=== PATIENT | female | born 1950 | race Caucasian/White ===

== ENCOUNTER → 2016-12-29 | Day surgery (SDC) | payer OTHER ==
[2016-12-12 08:19] VITALS: Ht 152.4 cm; Wt 115.9 kg
[~2016-12-29] VITALS: Ht 152.4 cm; Wt 115.9 kg
[~2016-12-29] MED LIST: ALBU18002 INH; AMLO-110 PO; CALC600T9 PO; CHOL1000 PO; EpHEDrine SULFATE INJ 50 MG/ML AMP ONE; FLVHFA110 INH; FURO40TA3 PO; HYDR200T5 PO; LIDOCAINE HCL 2% 2 ML VIAL (20MG/ML) ONE; MULT-506 PO; PROPOFOL IV EMULSION 10 MG/ML 20 ML VIAL IV ONE
--- NOTE | 2016-12-29 13:23 | Endo History and Physical ---
History & Physical Date of Service: Dec 29, 2016. Chief Complaint: HX OF POLYPS Referring Physician: DR. JAIN History of Present Illness For colonoscopy Past Surgical History Hx Cardiac Surgery: No Hx Internal Defibrillator: No Hx Pacemaker: No Hx Abdominal Surgery: Yes (AVELINO BSO) Hx of Implantable Prosthesis: No Hx Post-Op Nausea and Vomiting: No Hx Cancer Surgery: Yes (BCC REMOVAL FROM FACE) Hx Thoracic Surgery: No Hx Orthopedic: Yes (RT KNEE SURGERY) Hx Urinary Tract Surgery: No Family History Colon CA Social History Smoking Status: Never Smoker Hx Substance Use: No Hx Alcohol Use: No Allergies Coded Allergies: No Known Allergies (Verified , 12/29/16) Current Medications Reported Home Medications Medications Dose Route/Sig Max Daily Dose Days Date Category Calcium + D (Calcium Carbonate-Vitamin D) 1 Tab Tab 1 Tab PO QAM 12/12/16 Reported Plaquenil (Hydroxychloroquine Sulfate) 200 Mg Tab 200 Mg PO QPM PRN 12/12/16 Reported Vitamin D3 (Cholecalciferol) 1,000 Unit Tab 1 Tab PO QAM 12/12/16 Reported Multivitamin (Multivitamins) Tab 1 Tab PO QAM 12/12/16 Reported Lasix (Furosemide) 40 Mg Tab 40 Mg PO QAM 12/12/16 Reported Norvasc (Amlodipine Besylate) 5 Mg Tab 5 Mg PO QAM 12/12/16 Reported Proair Respiclick (Albuterol Sulfate) 108 Mcg/Act Aer 1 Puff INH Q4H PRN 12/12/16 Reported Flovent Hfa (Fluticasone Propionate) 120 Puffs/25722 Mcg Aero 2 Puffs INH BID PRN 12/12/16 Reported Vital Signs Weight (Kilograms): 115.91 Height (Feet): 5 Height (Inches): 0 Date Time Temp Pulse Resp B/P Pulse Ox O2 Delivery O2 Flow Rate FiO2 12/29/16 12:55 36.8 80 18 158/87 97 Room Air Physical Exam General Appearance: + obese Respiratory/Chest: Respiratory effort: no dyspnea Cardiovascular: Heart Auscultation: RRR Abdomen: Inspection & Palpation: soft Assessment and Plan Hx of polyps for colonoscopy
--- NOTE | 2016-12-29 13:47 | Discharge Instructions ---
Endoscopy Patient Instructions Date / Procedure(s) Performed Dec 29, 2016. Colonoscopy Allergy Information Coded Allergies: No Known Allergies (Verified , 12/29/16) Discharge Date / Findings Dec 29, 2016. Hemorrhoids Medication Instructions Restart Stopped Medication(s): resume meds Reported Home Medications Medications Dose Route/Sig Max Daily Dose Days Date Category Calcium + D (Calcium Carbonate-Vitamin D) 1 Tab Tab 1 Tab PO QAM 12/12/16 Reported Plaquenil (Hydroxychloroquine Sulfate) 200 Mg Tab 200 Mg PO QPM PRN 12/12/16 Reported Vitamin D3 (Cholecalciferol) 1,000 Unit Tab 1 Tab PO QAM 12/12/16 Reported Multivitamin (Multivitamins) Tab 1 Tab PO QAM 12/12/16 Reported Lasix (Furosemide) 40 Mg Tab 40 Mg PO QAM 12/12/16 Reported Norvasc (Amlodipine Besylate) 5 Mg Tab 5 Mg PO QAM 12/12/16 Reported Proair Respiclick (Albuterol Sulfate) 108 Mcg/Act Aer 1 Puff INH Q4H PRN 12/12/16 Reported Flovent Hfa (Fluticasone Propionate) 120 Puffs/85826 Mcg Aero 2 Puffs INH BID PRN 12/12/16 Reported Provider Instructions Activity Restrictions - No exercising or heavy lifting for 24 hours. - Do not drink alcohol the day of the procedure. - Do not drive a car or operate machinery until the day after the procedure. - Do not make any important decisions or sign important papers in 24 hours after the procedure. Following Day: - Return to full activity which may include returning to work/school. Diet Start your diet with liquids and light foods (jello, soup, juice, toast). Then eat your usual diet if not nauseated. Treatment For Common After Affects For mild abdominal pain, bloating, or excessive gas: - Rest - Eat lightly - Lie on right side Follow-Up Information Follow-up with DR. JAIN as scheduled Anesthesia Information What You Should Know You have had a procedure that required some medicine to reduce anxiety and discomfort. This treatment is called moderate sedation. After receiving the treatment, you may be sleepy, but you will be able to breathe on your own. The effects of the treatment may last for several hours. Follow these instructions along with Activity/Diet recommendations noted above: * Do NOT do anything where dizziness or clumsiness would be dangerous. * Rest quietly at home today, then you can be up and about tomorrow. * Have a responsible person stay with you the rest of today. * You may have had an I.V. today. If so, you may take the dressing off later today. Recommendations Call your doctor if: * Trouble breathing * Continuous vomiting for more than 24 hours * Temperature above 101 degrees * Severe abdominal pain or bloating * Pain not relieved by pain medicine ordered * There is increased drainage or redness from any incision * A large amount of rectal bleeding greater than 2-3 tablespoons. (If you had a polyp/s removed or have hemorrhoids, a small amount of blood - from the rectum is to be expected.) * You have any unanswered questions or concerns. IN THE EVENT OF A SERIOUS EMERGENCY, GO TO THE NEAREST EMERGENCY ROOM Your discharge instructions were prepared by provider Lucien Wright. Patient Instructions Signature Page Ny Vallecillo Patient (or Guardian) Signature/Date: I have read and understand the instructions given to me by my caregivers. Caregiver/RN/Doctor Signature/Date: The above-named patient and/or guardian has received patient instructions on this date. + Original Patient Signature Page (only) stays with chart. Please make copy for patient.
--- NOTE | 2016-12-29 13:50 | GI REPORT ---
Procedure Date: 12/29/2016 1:14 PM Procedure: Colonoscopy Indications: Personal history of colonic polyps Medicines: Propofol total dose 150 mg IV, Lidocaine 40 mg IV Complications: No immediate complications. Estimated Blood Loss: Estimated blood loss: none. Procedure: Pre-Anesthesia Assessment: - Prior to the procedure, a History and Physical was performed, and patient medications, allergies and sensitivities were reviewed. The patient's tolerance of previous anesthesia was reviewed. - The risks and benefits of the procedure and the sedation options and risks were discussed with the patient. All questions were answered and informed consent was obtained. After I obtained informed consent, the scope was passed under direct vision. Throughout the procedure, the patient's blood pressure, pulse, and oxygen saturations were monitored continuously. The scope was introduced through the anus and advanced to the terminal ileum. The colonoscopy was performed without difficulty. The patient tolerated the procedure well. The quality of the bowel preparation was excellent. Findings: Non-bleeding internal hemorrhoids were found during endoscopy. The hemorrhoids were mild. The terminal ileum appeared normal. Impression: - Non-bleeding internal hemorrhoids. - The examined portion of the ileum was normal. - No specimens collected. Recommendation: - Discharge patient to home (ambulatory). - Continue present medications. - Repeat colonoscopy in 5 years for surveillance. - Return to primary care physician PRN. Lucien Wright M.D. Lucien Wright MD 12/29/2016 1:49:28 PM This report has been signed electronically. Note Initiated On: 12/29/2016 1:14 PM I attest to the content of the Intraoperative Record and orders documented therein, exceptions below
[2016-12-29 14:19] VITALS: BP 127/67; PULSE 6; O2SAT 96
--- NOTE | 2016-12-29 14:37 | Anesthesiology Progress Note ---
Anesthesia Post Op Note Date & Time Dec 29, 2016 at 14:36 Vital Signs Pain Intensity: 0 Vital Signs Past 12 Hours Date Time Temp Pulse Resp B/P Pulse Ox O2 Delivery O2 Flow Rate FiO2 12/29/16 14:19 6 18 127/67 96 Room Air 12/29/16 14:03 74 18 121/67 95 Room Air 12/29/16 13:56 109/66 12/29/16 13:48 80 18 90/58 97 Room Air 12/29/16 12:55 36.8 80 18 158/87 97 Room Air Notes Mental Status: alert / awake / arousable, participated in evaluation Pt Amnestic to Procedure: Yes Nausea / Vomiting: adequately controlled Pain: adequately controlled Airway Patency, RR, SpO2: stable & adequate BP & HR: stable & adequate Hydration State: stable & adequate Anesthetic Complications: no major complications apparent
== END | disposition home or self-care (01) ==
LOC: C.GI 12:36
PROVIDERS: ATTEND Internal Medicine Gastroenterology
DX: Z86.010 Personal history of colon polyps (principal); K64.8 Other hemorrhoids; Z80.0 Family history of malignant neoplasm of digestive organs; Z90.710 Acquired absence of both cervix and uterus; Z90.79 Acquired absence of other genital organ(s); Z90.722 Acquired absence of ovaries, bilateral

== ENCOUNTER → 2017-01-06 | Outpatient (CLI) | payer OTHER ==
[~2017-01-06] MED LIST changes: -EpHEDrine SULFATE INJ 50 MG/ML AMP ONE; -LIDOCAINE HCL 2% 2 ML VIAL (20MG/ML) ONE; -PROPOFOL IV EMULSION 10 MG/ML 20 ML VIAL IV ONE
[2017-01-06 13:16] LABS: ALT/SGPT 24 U/L (12-78); AST/SGOT 8 U/L (15-37); BLOOD UREA NITROGEN 13 mg/dl (7-18); CALCIUM 8.8 mg/dl (8.5-10.1); CARBON DIOXIDE 30 mmol/L (21-32); CHLORIDE 109 mmol/L (98-107); CHOLESTEROL 177 mg/dl (0-200); GLUCOSE 85 mg/dl (70-99); MAGNESIUM 2.3 mg/dl (1.8-2.4); POTASSIUM 3.9 mmol/L (3.5-5.1); SODIUM 144 mmol/L (136-145)
[2017-01-06 13:20] LABS: CHOLESTEROL/HDL RATIO 3.6; HDL CHOLESTEROL 49 mg/dl; LDL CHOLESTEROL CALCULATED 100 mg/dl; TRIGLYCERIDES 142 mg/dl (0-150); VERY LOW DENSITY LIPOPROT CALC 28 mg/dl
== END | disposition home or self-care (01) ==
LOC: C.LABMFLN 10:43
PROVIDERS: ATTEND Family Medicine
DX: E78.5 Hyperlipidemia, unspecified (principal); E55.9 Vitamin D deficiency, unspecified; I10 Essential (primary) hypertension

== ENCOUNTER → 2017-07-20 | Outpatient (CLI) | payer OTHER ==
[2017-07-20 13:23] LABS: ALT/SGPT 28 U/L (12-78); AST/SGOT 15 U/L (15-37); BLOOD UREA NITROGEN 14 mg/dl (7-18); CALCIUM 8.9 mg/dl (8.5-10.1); CARBON DIOXIDE 28 mmol/L (21-32); CHLORIDE 104 mmol/L (98-107); CREATININE 0.59 mg/dl (0.60-1.20); GLUCOSE 89 mg/dl (70-99); POTASSIUM 3.9 mmol/L (3.5-5.1); SODIUM 141 mmol/L (136-145)
[2017-07-20 13:26] LABS: CHOLESTEROL 168 mg/dl (0-200); CHOLESTEROL/HDL RATIO 3.1; HDL CHOLESTEROL 54 mg/dl; LDL CHOLESTEROL CALCULATED 82 mg/dl; TRIGLYCERIDES 159 mg/dl (0-150); VERY LOW DENSITY LIPOPROT CALC 32 mg/dl
== END | disposition home or self-care (01) ==
LOC: C.LABMFLN 09:26
PROVIDERS: ATTEND Family Medicine
DX: E78.5 Hyperlipidemia, unspecified (principal); E55.9 Vitamin D deficiency, unspecified; I10 Essential (primary) hypertension

== ENCOUNTER → 2017-12-23 | Outpatient (CLI) | payer OTHER | END | disposition home or self-care (01) | LOC: C.LABMFLN 08:07 | PROVIDERS: ATTEND Family Medicine | DX: E87.6 Hypokalemia (principal) ==

== ENCOUNTER → 2018-01-06 | Day surgery (SDC) | payer OTHER ==
[2018-01-01 08:55] VITALS: BMI 51.0
[~2018-01-06] VITALS: Ht 149.9 cm; Wt 118.2 kg
[~2018-01-06] MED LIST changes: +FLUT1INH3 INH; +FLUT50SP45; -HYDR200T5 PO; +LIDOCAINE HCL 2% 2 ML VIAL (20MG/ML) ONE; +MONT1TAB5 PO; +OMEP-334 PO; +POTA1CAP2 PO; +PROPOFOL IV EMULSION 10 MG/ML 20 ML VIAL ONE; +TRMCR515 TOP
[2018-01-06 12:14] VITALS: Ht 149.9 cm; Wt 118.2 kg
--- NOTE | 2018-01-06 13:02 | Endo History and Physical ---
History & Physical Date of Service: January 06, 2018. Chief Complaint: EPIGASTRIC PAIN Referring Physician: DR. JAIN History of Present Illness For EGD Past Surgical History Hx Cardiac Surgery: No Hx Internal Defibrillator: No Hx Pacemaker: No Hx Abdominal Surgery: Yes ([facility]INO BSO) Hx of Implantable Prosthesis: No Hx Post-Op Nausea and Vomiting: No Hx Cancer Surgery: Yes (BCC REMOVAL FROM FACE) Hx Thoracic Surgery: No Hx Orthopedic: Yes (RT KNEE SURGERY, [facility]) Hx Urinary Tract Surgery: No Family History Colon CA Social History Smoking Status: Never Smoker Hx Substance Use: No Hx Alcohol Use: No Allergies Coded Allergies: No Known Allergies (Verified , 01/06/18) Current Medications Reported Home Medications Medications Dose Route/Sig Max Daily Dose Days Date Category Triamcinolone Acetonide (Triamcinolone Acet) 45 Appln/15 Gm Cr 1 Appln TOP BID 30 01/01/18 Reported Potassium Chloride Er (Potassium Chloride) 10 Meq Cap 1 Cap PO DAILY 90 01/01/[address] (Omeprazole) 40 Mg Cap 1 Tab PO DAILY 01/01/18 Reported Montelukast Sodium 10 Mg Tab 1 Tab PO DAILY 30 01/01/18 Reported Allergy Nasal [place] 24 Ho (Fluticasone Propionate (Nasal)) 50 Mcg/Act Spr 2 Sprays NA DAILY PRN 01/01/18 Reported Arnuity Ellipta (Fluticasone Furoate (Inhalatio) 100 Mcg/Act Inh 1 Puff INH DAILY 01/01/18 Reported Calcium + D (Calcium Carbonate-Vitamin D) 1 Tab Tab 1 Tab PO QAM 12/12/16 Reported Vitamin D3 (Cholecalciferol) 1,000 Unit Tab 1 Tab PO QAM 12/12/16 Reported Multivitamin (Multivitamins) Tab 1 Tab PO QAM 12/12/16 Reported Lasix (Furosemide) 40 Mg Tab 40 Mg PO QAM 12/12/16 Reported Norvasc (Amlodipine Besylate) 5 Mg Tab 5 Mg PO QAM 12/12/16 Reported Proair Respiclick (Albuterol Sulfate) 108 Mcg/Act Aer 1 Puff INH Q4H PRN 12/12/16 Reported Vital Signs Weight (Kilograms): 118.18 Height (Feet): 4 Height (Inches): 11 Date Time Temp Pulse Resp B/P (MAP) Pulse Ox O2 Delivery O2 Flow Rate FiO2 01/06/18 12:36 36.8 63 20 146/84 (104) 97 Room Air Physical Exam General Appearance: + obese Respiratory/Chest: Respiratory effort: no dyspnea Cardiovascular: Heart Auscultation: RRR Abdomen: Inspection & Palpation: soft Assessment and Plan Epig pain for EGD
--- NOTE | 2018-01-06 13:24 | Discharge Instructions ---
Endoscopy Patient Instructions Date / Procedure(s) Performed January 06, 2018. EGD Allergy Information Coded Allergies: No Known Allergies (Verified , 01/06/18) Discharge Date / Findings January 06, 2018. Gastric polyps Medication Instructions Restart Stopped Medication(s): resume meds Reported Home Medications Medications Dose Route/Sig Max Daily Dose Days Date Category Triamcinolone Acetonide (Triamcinolone Acet) 45 Appln/15 Gm Cr 1 Appln TOP BID 30 01/01/18 Reported Potassium Chloride Er (Potassium Chloride) 10 Meq Cap 1 Cap PO DAILY 90 01/01/[address] (Omeprazole) 40 Mg Cap 1 Tab PO DAILY 01/01/18 Reported Montelukast Sodium 10 Mg Tab 1 Tab PO DAILY 30 01/01/18 Reported Allergy Nasal [place] 24 Ho (Fluticasone Propionate (Nasal)) 50 Mcg/Act Spr 2 Sprays NA DAILY PRN 01/01/18 Reported Arnuity Ellipta (Fluticasone Furoate (Inhalatio) 100 Mcg/Act Inh 1 Puff INH DAILY 01/01/18 Reported Calcium + D (Calcium Carbonate-Vitamin D) 1 Tab Tab 1 Tab PO QAM 12/12/16 Reported Vitamin D3 (Cholecalciferol) 1,000 Unit Tab 1 Tab PO QAM 12/12/16 Reported Multivitamin (Multivitamins) Tab 1 Tab PO QAM 12/12/16 Reported Lasix (Furosemide) 40 Mg Tab 40 Mg PO QAM 12/12/16 Reported Norvasc (Amlodipine Besylate) 5 Mg Tab 5 Mg PO QAM 12/12/16 Reported Proair Respiclick (Albuterol Sulfate) 108 Mcg/Act Aer 1 Puff INH Q4H PRN 12/12/16 Reported Provider Instructions Activity Restrictions - No exercising or heavy lifting for 24 hours. - Do not drink alcohol the day of the procedure. - Do not drive a car or operate machinery until the day after the procedure. - Do not make any important decisions or sign important papers in 24 hours after the procedure. Following Day: - Return to full activity which may include returning to work/school. Diet Start your diet with liquids and light foods (jello, soup, juice, toast). Then eat your usual diet if not nauseated. Treatment For Common After Affects For mild abdominal pain, bloating, or excessive gas: - Rest - Eat lightly - Lie on right side Follow-Up Information Follow-up with DR. JAIN as scheduled Anesthesia Information What You Should Know You have had a procedure that required some medicine to reduce anxiety and discomfort. This treatment is called moderate sedation. After receiving the treatment, you may be sleepy, but you will be able to breathe on your own. The effects of the treatment may last for several hours. Follow these instructions along with Activity/Diet recommendations noted above: * Do NOT do anything where dizziness or clumsiness would be dangerous. * Rest quietly at home today, then you can be up and about tomorrow. * Have a responsible person stay with you the rest of today. * You may have had an I.V. today. If so, you may take the dressing off later today. Recommendations Call your doctor if: * Trouble breathing * Continuous vomiting for more than 24 hours * Temperature above 101 degrees * Severe abdominal pain or bloating * Pain not relieved by pain medicine ordered * There is increased drainage or redness from any incision * A large amount of rectal bleeding greater than 2-3 tablespoons. (If you had a polyp/s removed or have hemorrhoids, a small amount of blood - from the rectum is to be expected.) * You have any unanswered questions or concerns. IN THE EVENT OF A SERIOUS EMERGENCY, GO TO THE NEAREST EMERGENCY ROOM Your discharge instructions were prepared by provider Lucien Wright. Patient Instructions Signature Page Ny Vallecillo Patient (or Guardian) Signature/Date: I have read and understand the instructions given to me by my caregivers. Caregiver/RN/Doctor Signature/Date: The above-named patient and/or guardian has received patient instructions on this date. + Original Patient Signature Page (only) stays with chart. Please make copy for patient.
--- NOTE | 2018-01-06 13:29 | GI REPORT ---
Patient Name: Ny Vallecillo Procedure Date: 01/06/2018 1:04 PM Date of : 1950 Admit Type: Outpatient Age: 67 Gender: Female Attending MD: Lucien Wright MD Procedure: Upper GI endoscopy Providers: Lucien Wright MD Referring MD: Barry Joel Indications: Epigastric abdominal pain Medicines: Propofol total dose 90 mg IV, Lidocaine 80 mg IV Complications: No immediate complications. Estimated Blood Loss: Estimated blood loss: none. Procedure: Pre-Anesthesia Assessment: - Prior to the procedure, a History and Physical was performed, and patient medications, allergies and sensitivities were reviewed. The patient's tolerance of previous anesthesia was reviewed. - The risks and benefits of the procedure and the sedation options and risks were discussed with the patient. All questions were answered and informed consent was obtained. After obtaining informed consent, the endoscope was passed under direct vision. Throughout the procedure, the patient's blood pressure, pulse, and oxygen saturations were monitored continuously. The On-site loaner was introduced through the mouth, and advanced to the second part of duodenum. The upper GI endoscopy was accomplished without difficulty. The patient tolerated the procedure well. Findings: The Z-line was regular and was found 37 cm from the incisors. The examined esophagus was normal. A few 4 mm semi-sessile polyps with no bleeding and no stigmata of recent bleeding were found in the gastric body. The examined duodenum was normal. Impression: - Z-line regular, 37 cm from the incisors. - Normal esophagus. - A few gastric polyps. - Normal examined duodenum. - No specimens collected. Recommendation: - Discharge patient to home (ambulatory). - Continue present medications. - Return to primary care physician PRN. Lucien Wright M.D. Lucien Wright MD 01/06/2018 1:28:40 PM This report has been signed electronically. Note Initiated On: 01/06/2018 1:04 PM Number of Addenda: 0 I attest to the content of the Intraoperative Record and orders documented therein, exceptions below {[id number]}
--- NOTE | 2018-01-06 13:42 | Anesthesiology Progress Note ---
Anesthesia Post Op Note Date & Time January 06, 2018 at 13:42 Vital Signs Pain Intensity: 0 Vital Signs Past 12 Hours Date Time Temp Pulse Resp B/P (MAP) Pulse Ox O2 Delivery O2 Flow Rate FiO2 01/06/18 13:28 66 16 124/77 (93) 96 Room Air 01/06/18 12:36 36.8 63 20 146/84 (104) 97 Room Air Notes Mental Status: alert / awake / arousable, participated in evaluation Pt Amnestic to Procedure: Yes Nausea / Vomiting: adequately controlled Pain: adequately controlled Airway Patency, RR, SpO2: stable & adequate BP & HR: stable & adequate Hydration State: stable & adequate Anesthetic Complications: no major complications apparent
[2018-01-06 13:58] VITALS: BP 130/81; PULSE 65; O2SAT 97
== END | disposition home or self-care (01) ==
LOC: C.GI 11:48
PROVIDERS: ATTEND Internal Medicine Gastroenterology
DX: R10.13 Epigastric pain (principal); K31.7 Polyp of stomach and duodenum; G47.33 Obstructive sleep apnea (adult) (pediatric); J45.909 Unspecified asthma, uncomplicated; Z98.890 Other specified postprocedural states; Z80.0 Family history of malignant neoplasm of digestive organs

== ENCOUNTER → 2018-04-21 | Outpatient (CLI) | payer OTHER ==
[~2018-04-21] MED LIST changes: -AMLO-110 PO; +AMLO5TAB3 PO; -FLVHFA110 INH; -LIDOCAINE HCL 2% 2 ML VIAL (20MG/ML) ONE; -PROPOFOL IV EMULSION 10 MG/ML 20 ML VIAL ONE
[2018-04-21 13:05] LABS: ALBUMIN 3.3 gm/dl (3.4-5.0); ALKALINE PHOSPHATASE 66 U/L (45-117); ALT/SGPT 25 U/L (12-78); AST/SGOT 12 U/L (15-37); BLOOD UREA NITROGEN 15 mg/dl (7-18); CARBON DIOXIDE 30 mmol/L (21-32); CHOLESTEROL 178 mg/dl (0-200); CREATININE 0.65 mg/dl (0.60-1.20); GLUCOSE 89 mg/dl (70-99); LDL CHOLESTEROL CALCULATED 102 mg/dl; POTASSIUM 4.1 mmol/L (3.5-5.1); SODIUM 139 mmol/L (136-145); TOTAL PROTEIN 7.2 gm/dl (6.4-8.2)
== END | disposition home or self-care (01) ==
LOC: C.LABMFLN 07:52
PROVIDERS: ATTEND Family Medicine
DX: J30.9 Allergic rhinitis, unspecified (principal); E78.5 Hyperlipidemia, unspecified; I10 Essential (primary) hypertension

== ENCOUNTER 2019-07-05 08:11 | Inpatient (IN) ==
--- NOTE | 2019-06-06 14:18 | PAT Medication Instructions ---
Medication Instructions Date of Service June 06, 2019 Home Medications Medication Instructions Recorded albuterol sulfate HFA 90 2 puffs INHALATION Q4H PRN #18 gm 05/13/19 mcg/actuation aerosol inhaler metoprolol tartrate 25 mg tablet 25 mg PO BID #180 tab 05/17/19 albuterol sulfate HFA 90 mcg/actuation aerosol inhaler 2 puffs INHALATION Q4H PRN metoprolol tartrate 25 mg tablet 25 mg PO BID amlodipine 2.5 mg PO QAM calcium carbonate-vitamin D3 [Calcium 600 with Vitamin D3] 1 cap PO QAM cholecalciferol (vitamin D3) 4,000 units PO QAM fluticasone furoate 1 puffs INHALATION QAM fluticasone propionate 2 sprays INTRANASAL QAM PRN montelukast 10 mg PO QAM multivitamin 1 tab PO QAM triamcinolone acetonide 1 appln TOPICAL BID PRN STOP taking 24 hours before surgery triamcinolone acetonide 1 appln TOPICAL BID PRN DO NOT take the morning of surgery calcium carbonate-vitamin D3 [Calcium 600 with Vitamin D3] 1 cap PO QAM cholecalciferol (vitamin D3) 4,000 units PO QAM montelukast 10 mg PO QAM multivitamin 1 tab PO QAM Take morning of surgery With a small sip of water, OTHERWISE NOTHING TO EAT OR DRINK AFTER MIDNIGHT: albuterol sulfate HFA 90 mcg/actuation aerosol inhaler 2 puffs INHALATION Q4H PRN (use if needed; please bring with you to hospital day of surgery if possible) metoprolol tartrate 25 mg tablet 25 mg PO BID amlodipine 2.5 mg PO QAM fluticasone furoate 1 puffs INHALATION QAM fluticasone propionate 2 sprays INTRANASAL QAM PRN (if needed) Other Notes If you have any questions please call us at [phone] or [phone] or [phone] or [phone]
--- NOTE | 2019-06-07 08:24 | Anesthesiology Consultation ---
Date of Service June 07, 2019 Assessment & Plan (1) Encounter for pre-operative examination: Chart Review Chart Review: Pending: Refer to Additional Notes / Consult section (pending preop testing (labs, EKG)) and Patient seen in Pre Admission Testing Teaching & Discussion Pre-Anesthesia Teaching/Discussion Notes: Instructed NPO after midnight before surgery,except medications with 15 cc of water. Medication instructions provided according to the PAT guidelines. History Surgery Operation Date: 07/05/19 08:50 Proposed Procedures p Right Total Knee Replacement - Az Ayala MD Height/Weight Height: 5 ft Weight: 115.1 kg Allergies Allergy/AdvReac Type Severity Reaction Status Date / Time No Known Allergies Allergy Verified 06/03/19 10:25 Medications Home Medications Medication Instructions Recorded Confirmed Last Taken albuterol sulfate HFA 90 2 puffs INHALATION Q4H PRN #18 gm 05/13/19 06/03/19 Unknown mcg/actuation aerosol inhaler metoprolol tartrate 25 mg tablet 25 mg PO BID #180 tab 05/17/19 06/03/19 Unknown amlodipine 2.5 mg PO QAM 06/03/19 06/03/19 Unknown calcium carbonate-vitamin D3 1 cap PO QAM 06/03/19 06/03/19 Unknown [Calcium 600 with Vitamin D3] cholecalciferol (vitamin D3) 4,000 units PO QAM 06/03/19 06/03/19 Unknown fluticasone furoate 1 puffs INHALATION QAM 06/03/19 06/03/19 Unknown fluticasone propionate 2 sprays INTRANASAL QAM PRN 06/03/19 06/03/19 Unknown montelukast 10 mg PO QAM 06/03/19 06/03/19 Unknown multivitamin 1 tab PO QAM 06/03/19 06/03/19 Unknown triamcinolone acetonide 1 appln TOPICAL BID PRN 06/03/19 06/03/19 Unknown Past Medical History Medical History GERD without esophagitis hx Asthma stable Chronic edema B/L LE; L>R Heart palpitations hx- no recent issues; previously had bigeminy on prior EKG in setting of illness (N/V/dehydration)- not noted on preop EKG done 06/07/19 History of basal cell cancer s/p excision Hypertension Morbid obesity with BMI of 45.0-49.9, adult Osteoarthritis Sleep apnea CPAP Exercise / Class Metabolic Activity III < 4 Walking/Shop/Light housework (uses cane PRN) Past Family History Family History Grandmother (Maternal) Colorectal cancer Grandmother (Paternal) Diabetes Father COPD (chronic obstructive pulmonary disease) Mother Asthma Past Surgical History Surgical History History of arthroscopy of knee History of basal cell carcinoma (BCC) excision History of bunionectomy right History of carpal tunnel release of both wrists History of colonoscopy W/ POLYPECTOMY History of esophagogastroduodenoscopy (EGD) History of hammertoe correction right History of surgery on arm History of tonsillectomy Hx of abdominal hysterectomy Past Anesthesia History No Hx of Anesthesia Complications Mother: "slow to wake" History of PONV No Hx of PONV and No Hx of Motion Sickness Social History Smoking Status: Never smoker Do You Dip or Chew Tobacco: No Hx Alcohol Use: Yes alcohol intake frequency: holidays/special occasions only Hx Substance Use: No substance use type: does not use Review of Systems Hx of GERD with no recent issues. Patient denies chest pain, shortness of breath, cough, wheezing, palpitations. Physical Exam Vital Signs VITALS BP 100/69 P 59 TEMP 98.1 SP02 96%RA RESP 18 PHYSICAL Full neck and c-spine range of motion. Full TMJ range of motion. TMD 3.5 finger breaths Mallampati Score 3 (small oral opening) Dentition: intact, upper right side bridge Lungs: clear throughout to auscultation Cardiac: regular rate and rhythm, no murmurs noted Spine: normal Carotid arteries: negative bruit Extremities: no edema Short neck Testing Chest X-Ray Date: 01/06/19 Stress Test Date: 12/01/17 Type: exercise Negative exercise stress ECHO/EKG for ischemia at 90% MPHR. No induced chest pain. Poor functional status. LVEF 57%. Mild MR. Mild LAE.
[2019-06-07 11:20] LABS: Basophils # (auto) 0.02 K/uL (0-0.2); Basophils % (auto) 0.3 %; Eosinophils # (auto) 0.17 K/uL (0-0.5); Eosinophils % (auto) 2.6 %; Hemoglobin 13.9 g/dL (12.0-16.0); Immature Granulocytes # (auto) 0.02 K/uL (0.00-0.02); Immature Granulocytes % (auto) 0.3 %; Lymphocytes # (auto) 1.87 K/uL (1.2-3.4); Lymphocytes % (auto) 28.1 %; Mean Corpuscular Hemoglobin 29.6 pg (25-34); Mean Corpuscular Hgb Conc 32.3 g/dL (32-36); Mean Corpuscular Volume 91.5 fL (80-100); Mean Platelet Volume 12.2 fL (7.4-10.4); Monocytes # (auto) 0.48 K/uL (0.11-0.59); Monocytes % (auto) 7.2 %; Neutrophils % (auto) 61.5 %; Platelet Count 205 K/uL (130-400); RDW Coefficient of Variation 14.1 % (11.5-14.5); RDW Standard Deviation 47.4 fL (36.4-46.3); White Blood Count 6.66 K/uL (4.8-10.8)
[2019-06-07 11:34] LABS: Partial Thromboplastin Time 26.6 Seconds (21.0-31.0); Prothrombin Time 10.3 Seconds (9.0-12.0)
[2019-06-07 11:49] LABS: BUN Creatinine Ratio 20.5 (10-20); Calcium 9.4 mg/dl (8.5-10.1); Creatinine Clr Calc Pharmacy 97.6 ml/min; Est GFR (African American) 106.1; Est GFR (Non-African American) 91.5; Potassium 3.9 mmol/L (3.5-5.1)
--- NOTE | 2019-06-29 22:41 | History and Physical Report ---
DATE OF ADMISSION: 07/05/2019 CHIEF COMPLAINT: Bilateral knee pain and discomfort, right side greater than left. HISTORY OF PRESENT ILLNESS: The patient is a 68-year-old female who I have been following for some time for bilateral knee pain and DJD. I have been putting injections in her knees, which have become less successful over time. She described global pain in both knees. The right side is worse than the left. She has a very limited walking tolerance. She waddles when she walks. The more she walks, the more it hurts. She has global pain. Would like to have her right knee fixed. She does have a history of knee arthroscopy many years ago. She does use a cane to get around. PAST MEDICAL HISTORY: Significant for, 1. Hypertension. 2. Occasional heart palpitations. 3. Sleep apnea with CPAP machine. 4. Obesity with a BMI of 50. 5. Back pain. 6. Basal cell skin cancer. PAST SURGICAL HISTORY: 1. Knee arthroscopy. 2. Tonsillectomy. 3. Broken arm surgery. 4. Hysterectomy. 5. Hammertoe corrections and bunion surgery on the right side. 6. Carpal tunnel release bilaterally. ALLERGIES: None. CURRENT MEDICATIONS: 1. Amlodipine. 2. Potassium. 3. Metoprolol. 4. Asthma inhaler. 5. Multivitamin. 6. Calcium. 7. Vitamin D. SOCIAL HISTORY: A 68-year-old white female patient from [place]. Lives by herself. She does not smoke. FAMILY HISTORY: Noncontributory. REVIEW OF SYSTEMS: Negative for diabetes, neurologic problems, vascular problems, or bleeding disorders. No chest pain, no shortness of breath. No history of DVT or PE. PHYSICAL EXAMINATION: GENERAL: Physical examination reveals a pleasant elderly female. Looks to be in reasonably good health. HEENT: Benign. NECK: Supple, no lymphadenopathy. LUNGS: Clear to auscultation. HEART: Regular rate and rhythm. ABDOMEN: Soft, nontender, nondistended. EXTREMITIES: Grossly neurovascularly intact except as follows: Examination of both knees reveals the patient walks with a little bit of waddling gait. She has got varus alignment to both knees. Examination of the right knee reveals moderate soft tissue envelope. Range of motion is about 10 degrees short of full extension to 115 degrees of flexion. There is no instability. No pain with hip motion. Examination of the left knee reveals slight varus alignment. Range of motion is 10-120. She is tender over the medial joint line. No pain with hip motion. X-RAYS: X-rays of both knees reveal advanced bilateral knee DJD. She had complete loss of the medial joint space in both knees. She has osteophytes in all 3 compartments. She has subchondral sclerosis. ASSESSMENT: A 68-year-old white female with advanced bilateral knee degenerative joint disease, right side a little bit worse than the left clinically. She has failed conservative treatment and would like to proceed with knee replacement. PLAN: We will take her to the operating room and do a right total knee replacement. The risks and benefits of this procedure were explained to the patient including, but not limited to, DVT, PE, , infection, neurological injury, vascular injury, bleeding problems, pain, limited range of motion, stiffness, failure to relieve her symptoms, incomplete relief of symptoms, need for further surgery in the future, fracture, leg length inequality, nerve palsy, etc. The patient understands and desires to proceed. Informed consent was obtained. The patient lives by herself. She is planning on going to stay with her mother for the first 2 weeks postop. She will likely have some home health. I did talk to her about taking metoprolol the morning of surgery and bringing the CPAP machine to the hospital.
[~2019-07-05 08:11] MED LIST changes: +ACETAMINOPHEN 500 MG TAB PO SCH; -ALBU18002 INH; -AMLO5TAB3 PO; +BUPIVACAINE 0.5 % 5 MG/1 ML PF 10ML VIAL ONE; +BUPIVACAINE LIPOSOME/PF 266 MG, BUPIVACAINE/EPINEPHRINE 50 ML, SODIUM CHLORIDE 0.9% 30 ... INFIL SCH; -CALC600T9 PO; +CEFAZOLIN 2000MG 2,000 MG/15 ML SYR IV SCH; -CHOL1000 PO; +FAMOTIDINE 20 MG TAB PO SCH; -FLUT1INH3 INH; -FLUT50SP45; -FURO40TA3 PO; +GABAPENTIN 300 MG CAP PO SCH; +LACTATED RINGER'S 1,000 ML IV SCH; +LR 500ML BOLUS, THEN 15ML/HR IV SCH; +LR 60ML/HR IV SCH; +METOCLOPRAMIDE HCL 10 MG TABLET PO SCH; -MONT1TAB5 PO; -MULT-506 PO; -OMEP-334 PO; -POTA1CAP2 PO; +ROPIVACAINE 0.5% 5 MG/ML 30 ML VIAL ONE; +TRANEXAMIC ACID 1,000 MG **IV Intra-op IV SCH; -TRMCR515 TOP
--- NOTE | 2019-07-05 08:48 | History & Physical Bridge Note ---
Date of Service July 05, 2019 History & Physical Bridge Note I have examined the patient, reviewed the History & Physical and in the interval since the performance of the History & Physical I have noted the following changes of clinical significance: no changes noted
[2019-07-05] MEDS ORDERED: MIDAZOLAM HCL 1 MG/ML 2ML VIAL ONE (09:18)
[2019-07-05] MEDS ORDERED: HYDROmorphone INJ 1 MG/ML SYRINGE IV PRN (10:30)
[2019-07-05] MEDS ORDERED: KETOROLAC 30 MG/ML VIAL IV PRN (10:30)
[2019-07-05] MEDS ORDERED: ePHEDrine sulfate 50 MG/ML AMP IV PRN (10:30)
[2019-07-05] MEDS ORDERED: ONDANSETRON INJ 2 MG/ML 2 ML VIAL IV PRN ×2 (10:30→14:23)
[2019-07-05] MEDS ORDERED: ATROPINE SULFATE 0.1 MG/ML 10ML SYR IV PRN (10:30)
[2019-07-05] MEDS ORDERED: SODIUM CHLORIDE 0.9% PF 50 ML VIAL ONE (11:06)
[2019-07-05] MEDS ORDERED: BUPIVACAINE LIPOSOME 1.3% 266 MG/20 ML VIAL ONE (11:06)
[2019-07-05] MEDS ORDERED: BACITRACIN INJ 50,000 UNIT VIAL ONE (11:06)
[2019-07-05] MEDS ORDERED: BUPIVACAINE 0.25% 30 ML VIAL ONE (11:08)
[2019-07-05] MEDS ORDERED: EPINEPHrine INJ 1 MG/ML AMP ONE (11:08)
[2019-07-05] MEDS ORDERED: PROPOFOL IV EMULSION 10 MG/ML 20 ML VIAL IV ONE (11:29)
[2019-07-05] MEDS ORDERED: PHENYLEPHRINE 100MCG/ML 5ML SYR ONE (11:29)
--- NOTE | 2019-07-05 13:26 | Post Operative Brief Note ---
PG Immediate Post Op with CF Date of Surgery July 05, 2019 Pre & Post Diagnosis Operation Date: 07/05/19 10:40 Pre-Op Diagnosis: Right Knee Advanced Degenerative Joint Disease Post-Op Diagnosis: Right Knee Advanced Degenerative Joint Disease I identified the patient and participated in the time-out.: Yes Procedure Operation Date: 07/05/19 10:40 Actual Procedures p Right Total Knee Arthroplasty(Right) - Az Ayala MD Surgeon Az Ayala MD Production Broacher None Estimated Blood Loss 50 Findings Consistent with Post-Op Diagnosis Fluids 1200 cc Specimens Specimen Description: A. Right Knee Bone and Tissue Drains Taveras Catheter (A 16 [place] taveras catheter was inserted by Vic Hunter RN, without difficulty, clear yellow urine obtained, output to be monitored by Anesthesia.) Anesthesia Type Spinal MAC Complications none Disposition Accompanied Patient To Recovery: Yes Disposition: Recovery Room
--- NOTE | 2019-07-05 13:56 | Operative Report ---
DATE OF OPERATION: 07/05/2019 SURGEON: Az Ayala MD CORE DROPPER: None. PREOPERATIVE DIAGNOSIS: Right knee degenerative joint disease. POSTOPERATIVE DIAGNOSIS: Right knee degenerative joint disease. PROCEDURE PERFORMED: Right cemented posterior stabilized total knee arthroplasty. COMPLICATIONS: None. ESTIMATED BLOOD LOSS: 50 mL. FLUID REPLACEMENT: 1200 mL crystalloid fluid replacement. TOURNIQUET TIME: 63 minutes at 300 mmHg. ANESTHESIA: Spinal with adductor canal block. DRAINS: None. SPECIMENS: Right knee sent for pathology. OPERATIVE INDICATIONS: The patient is a 69-year-old female who has had a long history of bilateral knee pain and discomfort, right side greater than left. She has been through extensive conservative treatment over the years, which became less successful. She became more debilitated by her disease and having difficulty living on her own. She elected to proceed with right total knee arthroplasty. OPERATIVE FINDINGS: Operative findings revealed advanced right knee DJD with extensive grade 4 [id number] disease and eburnation and osteophytes in the medial femoral condyle and medial tibial plateau. She had grade 4 disease of the patellofemoral joint as well. She had a fixed varus deformity to her knee with a flexion contracture of 10 degrees. OPERATIVE IMPLANTS: Operative implants consisted of: 1. Biomet Vanguard size 60 right posterior stabilized femoral component. 2. Biomet size 67 tibial tray. 3. A 12 mm posterior stabilized polyethylene insert. 4. A 28 x 8 all poly patella. OPERATIVE PROCEDURE: The patient was taken to the operating room, identified and placed on the operating table in supine position. All contact areas were appropriately padded. IV antibiotics provided by anesthesia team. Spinal anesthetic and adductor canal block had been provided in the holding area. Taylor catheter was placed in sterile fashion. Right thigh tourniquet was then placed and the right lower extremity was then prepped and draped in the usual sterile fashion. The right leg was elevated and exsanguinated using an Esmarch and tourniquet was placed at 300 mmHg. An anterior approach of the right knee was then performed through a longitudinal incision centered over the patella. Sharp dissection was carried through subcutaneous tissue down below the extensor mechanism. A medial parapatellar arthrotomy incision was made. Some subperiosteal dissection was carried out medially. The fat pad resected from beneath the patellar tendon. The lateral patellofemoral ligament was released. The patella was everted and knee was flexed. The osteophytes were taken off the distal femur. The ACL and PCL were then released from distal femur and the tibia subluxated anteriorly. The external tibial alignment jig was then placed in the anterior face of the tibia and adjusted 16 mm medially. Proximal tibial cut was made to remove about a millimeter or 2 of bone from most deficient aspect of the medial tibial plateau. Tibia was sized to a size 67. Some large osteophytes were taken off the medial and posteromedial aspect of the tibia. Attention was then drawn to the femur. The distal femur was entered with a sharp drill bit. Intramedullary canal was suctioned. A right 5-degree valgus cutting guide was placed. Distal femoral cutting block was pinned in place. Distal femoral cut was made to take an additional 3 mm of bone off the distal femur. The femur was then sized to a size 60. We did downsize this about half size. The AP cutting block was pinned parallel to the epicondylar axis, which was 4 degrees of external rotation. The anterior cut, anterior chamfer cut, posterior cut, posterior chamfer cuts were made. Box cutting guide was placed and adjusted slightly lateral and box cut was made. The knee was flexed. The remnants of the medial and lateral menisci were excised. The osteophytes were taken off the posterior aspect of the femur. A trial femoral component was placed through the tibial tray was pinned in maximum external rotation and drill and stem punch were used to create defect in proximal tibia for the tibial tray. The knee was then trialed and the 12 mm insert fit most appropriately. Attention was then drawn to the patella. The patella was cleaned of all soft tissues. Patella thickness measured 20 mm in thickness, it was cut down to 13. It was sized this twice 28 patella. Lug holes were drilled for a 28 patella. Lateral osteophyte was removed. Patella button was placed. Knee was taken through range of motion, patella tracked nicely with no thumbs test. Attention was then turned toward placement of permanent components. All trial components were removed. Bone plug was placed in the distal femur to limit blood loss. A double batch of Palacos G cement was mixed. A Biomet Vanguard size 60 right posterior stabilized femoral component, Biomet size 67 tibial tray, 12 mm posterior stabilized polyethylene insert, and a 28 x 8 all poly patella then cemented in place. Knee was brought out into full extension until cement hardened. Final cement check was then performed. Pericapsular tissues were injected with a total of 100 mL of a combination of 20 mL of Exparel, 30 mL of normal saline, 50 mL of 0.25% Marcaine with epinephrine. The patient did receive 1 gram of tranexamic acid. The tourniquet was let down for a tourniquet time 63 minutes. Hemostasis was assured using electrocautery. The wound was once again irrigated. Extensor mechanism was then closed with combination of #1 PDS suture and #1 Vicryl suture in [id number] fashion. Extensor mechanism was checked and found to be intact. The subcutaneous tissue was then closed with #2 Dexon suture in a buried interrupted fashion. Skin was closed with skin ramon. Leg was then cleaned, dried and a sterile dressing of Xeroform, 4 x 4, sterile cast padding and Nolan bandage were applied. The patient then transferred to the recovery room in stable condition. The patient tolerated the procedure well with no complication. All needle and sponge counts were correct at the end of the operation. I attest to the content of the Intraoperative Record and any orders documented therein. Any exception s are noted below.
--- NOTE | 2019-07-05 14:00 | XRay Report ---
XR knee RT 1 or 2V routine CLINICAL HISTORY: Postop examination COMPARISON: 02/17/2019 DISCUSSION: There are postsurgical changes of a total right knee arthroplasty and patellar resurfacin g. The femoral tibial components appear well seated. Overlying skin ramon are evident. There is air in the soft tissues consistent with recent surgery. IMPRESSION: Postsurgical changes of a total right knee arthroplasty. Electronically signed by: Abisai Brock M.D. 07/05/2019 1:58 PM
[2019-07-05] MEDS ORDERED: NALOXONE HCL 0.4 MG/1 ML VIAL/CARP IV PRN (14:23)
[2019-07-05] MEDS ORDERED: TRIAMCINOLONE ACET 0.1% CR 15 GM TUBE TOP PRN (14:23)
[2019-07-05] MEDS ORDERED: BISACODYL 10 MG SUPP PR PRN (14:23)
[2019-07-05] MEDS ORDERED: ALUMINUM/MAGNESIUM SUSP 30 ML UDC PO PRN (14:23)
[2019-07-05] MEDS ORDERED: HYDROmorphone INJ 0.5 MG/0.5 ML SYR IV PRN (14:23)
[2019-07-05] MEDS ORDERED: ALBUTEROL HFA 8 GM INHALER INH PRN (14:23)
[2019-07-05] MEDS ORDERED: FLUTICASONE PROPIONATE NA SPR 16 GM BTL NAE PRN (14:23)
[2019-07-05] MEDS ORDERED: MAGNESIUM HYDROXIDE SUSP 30 ML UDC PO PRN (14:23)
[2019-07-05] MEDS ORDERED: METOCLOPRAMIDE HCL INJ 5 MG/ML 2 ML VIAL IV PRN (14:23)
--- NOTE | 2019-07-05 15:08 | Anesthesiology Progress Note ---
Date of Service July 05, 2019 Anesthesia Post Procedure Vital Signs Vital Signs: Temp Pulse Pulse Resp BP BP Pulse Ox 07/05/19 14:59 36.6 C 66 18 113/75 98 07/05/19 14:25 36.6 C 82 16 112/74 96 07/05/19 14:05 36.7 C 66 13 100/71 97 07/05/19 13:55 64 15 104/77 96 07/05/19 13:45 62 15 101/56 L 95 07/05/19 13:35 73 15 101/59 L 95 07/05/19 13:27 36.0 C L 78 14 102/60 94 07/05/19 08:43 36.6 C 63 18 125/76 94 Pain Intensity Right Knee: Pain Intensity: 0 Transfer of Care Handoff Completed per policy Notes Mental Status: alert / awake / arousable Patient Amnestic to Procedure: Yes Nausea / Vomiting: adequately controlled Pain: adequately controlled Airway Patency, RR, SpO2: stable & adequate BP & HR: stable & adequate Hydration State: stable & adequate Neuraxial Anesthesia: was administered and sensory block is resolving Anesthetic Complications: no major complications apparent
[2019-07-05] MEDS: ACETAMINOPHEN 500 MG TAB PO SCH ×2 (15:20→21:07)
[2019-07-05] MEDS: SODIUM CHLORIDE 0.9% 1000ML 1,000 ML IV SCH ×2 (15:20→23:10)
[2019-07-05] MEDS: KETOROLAC TROMETHAMINE 15 MG/ML VIAL IV SCH ×2 (15:21→21:08)
[2019-07-05] MEDS: FERROUS GLUCONATE 324 MG TAB PO SCH (18:12)
[2019-07-05] MEDS: ASCORBIC ACID 500 MG TAB PO SCH (18:13)
--- NOTE | 2019-07-05 18:45 | Progress Note ---
DATE: 07/05/2019 SUBJECTIVE: A 69-year-old white female postop from a right knee replacement. She is doing well. Just starting to get the feeling and function back in her leg. She has no pain. No chest pain or shortness of breath. Not feeling dizzy or lightheaded. OBJECTIVE: VITAL SIGNS: Temperature 36.6. Vital signs stable. GENERAL: Reveals a pleasant elderly female. She is sitting up in bed and talking to her sister. She looks comfortable. LUNGS: Clear to auscultation. HEART: Regular rate and rhythm. ABDOMEN: Soft, nontender, nondistended. EXTREMITIES: Grossly neurovascularly intact except as follows: Examination of the right leg reveals the leg to be well aligned. Dressing is clean, dry and intact. She can dorsiflex and plantarflex her foot, although it is a little bit weak still. She has brisk refill and good distal pulse. X-RAYS: X-rays of the right knee from recovery room reviewed. It is somewhat rotated film. No signs of obvious problems. ASSESSMENT: A 69-year-old white female postop from a right knee replacement, doing well. Pain is controlled. The function is just returning into her leg. She appears neurologically intact. PLAN: 1. DVT prophylaxis including thigh-high TEDs, SCDs, and aspirin twice daily. 2. PT/OT. Weight bear as tolerated. Right total knee protocol. 3. Pain control, doing pretty well with current pain regimen. We will obviously have to adjust things as her spinal wears off. 4. IV antibiotics x24 hours. 5. Disposition: She is hoping to be discharged to rehab. She will likely need a 3-day hospital stay, I believe. We will have public health social worker start working on this in the morning.
[2019-07-05] MEDS ORDERED: TRANEXAMIC ACID 1,000 MG in 0.9 % SODIUM CHLORIDE 100 ML IV SCH (19:30)
[2019-07-05] MEDS: TRAMADOL HCL 50 MG TABLET PO PRN (19:48)
[2019-07-05] MEDS: CEFAZOLIN 2000MG 2,000 MG/15 ML SYR IV SCH (19:58)
[2019-07-05] MEDS: METOPROLOL TARTRATE 25 MG TAB PO SCH (20:25)
[2019-07-05] MEDS: DOCUSATE SODIUM 100 MG CAP PO SCH (20:25)
[2019-07-05] MEDS: ASPIRIN 81 MG ECTAB PO SCH (20:25)
[2019-07-05] MEDS: SENNA 8.6 MG TAB PO SCH (20:26)
[2019-07-06] MEDS: KETOROLAC TROMETHAMINE 15 MG/ML VIAL IV SCH ×4 (03:00→21:11)
[2019-07-06] MEDS: ACETAMINOPHEN 500 MG TAB PO SCH ×3 (03:00→21:12)
[2019-07-06] MEDS: CEFAZOLIN 2000MG 2,000 MG/15 ML SYR IV SCH (05:10)
[2019-07-06 05:29] LABS: Hematocrit (blood only) 34.3 % (37-47); Hemoglobin 11.1 g/dL (12.0-16.0); Mean Corpuscular Hemoglobin 29.1 pg (25-34); Mean Corpuscular Hgb Conc 32.4 g/dL (32-36); Mean Corpuscular Volume 89.8 fL (80-100); Mean Platelet Volume 10.5 fL (7.4-10.4); Platelet Count 146 K/uL (130-400); RDW Coefficient of Variation 14.4 % (11.5-14.5); RDW Standard Deviation 47.6 fL (36.4-46.3); Red Blood Count 3.82 M/uL (4.2-5.4); White Blood Count 6.36 K/uL (4.8-10.8)
[2019-07-06 05:48] LABS: BUN Creatinine Ratio 20.8 (10-20); Calcium 8.1 mg/dl (8.5-10.1); Creatinine Clr Calc Pharmacy 95.6 ml/min; Est GFR (African American) 105.5; Potassium 3.9 mmol/L (3.5-5.1)
--- NOTE | 2019-07-06 08:14 | Anesthesiology Progress Note ---
Date of Service July 06, 2019 Anesthesia Post Procedure Vital Signs Vital Signs: Temp Pulse Pulse Resp BP BP Pulse Ox 07/06/19 07:00 37.1 C 66 18 99/65 L 96 07/06/19 02:57 37.1 C 89 18 131/74 95 07/05/19 23:22 37.0 C 59 L 16 96/64 L 96 07/05/19 20:05 36.7 C 65 18 122/80 95 07/05/19 17:27 36.9 C 65 18 106/72 95 07/05/19 16:54 36.6 C 74 20 108/70 95 07/05/19 15:25 36.6 C 77 20 112/77 97 07/05/19 14:59 36.6 C 66 18 113/75 98 07/05/19 14:25 36.6 C 82 16 112/74 96 07/05/19 14:05 36.7 C 66 13 100/71 97 07/05/19 13:55 64 15 104/77 96 07/05/19 13:45 62 15 101/56 L 95 07/05/19 13:35 73 15 101/59 L 95 07/05/19 13:27 36.0 C L 78 14 102/60 94 07/05/19 08:43 36.6 C 63 18 125/76 94 Pain Intensity Right Knee: Pain Intensity: 2 Notes Mental Status: alert / awake / arousable Nausea / Vomiting: adequately controlled Pain: adequately controlled Airway Patency, RR, SpO2: stable & adequate BP & HR: stable & adequate Hydration State: stable & adequate Neuraxial Anesthesia: was administered and sensory block resolved Anesthetic Complications: no major complications apparent and Pt Satisfied with anesthetic care
[2019-07-06] MEDS: TRAMADOL HCL 50 MG TABLET PO PRN ×2 (08:26→14:47)
[2019-07-06] MEDS: ASPIRIN 81 MG ECTAB PO SCH ×2 (08:59→21:11)
[2019-07-06] MEDS: DOCUSATE SODIUM 100 MG CAP PO SCH ×2 (09:00→18:44)
[2019-07-06] MEDS: CALCIUM 600MG + VIT D 400 IU TAB PO SCH (09:00)
[2019-07-06] MEDS: CHOLECALCIFEROL 1,000 UNITS TAB PO SCH (09:00)
[2019-07-06] MEDS ORDERED: MULTIVITAMIN TAB PO SCH (09:00)
[2019-07-06] MEDS: MONTELUKAST SODIUM 10 MG TABLET PO SCH (09:01)
[2019-07-06] MEDS: METOPROLOL TARTRATE 25 MG TAB PO SCH ×2 (09:01→21:15)
[2019-07-06] MEDS: MULTIVITAMIN TAB PO SCH (09:01)
[2019-07-06] MEDS: FERROUS GLUCONATE 324 MG TAB PO SCH ×2 (09:02→17:41)
[2019-07-06] MEDS: AMLODIPINE BESYLATE 5 MG TAB PO SCH (09:02)
[2019-07-06] MEDS: ASCORBIC ACID 500 MG TAB PO SCH ×2 (09:02→17:41)
--- NOTE | 2019-07-06 14:04 | Progress Note ---
DATE: 07/06/2019 SUBJECTIVE: A 69-year-old female postop day 1 from right knee replacement. She is doing pretty well. Some pain, but manageable. No chest pain or shortness of breath. Not feeling dizzy or lightheaded. OBJECTIVE: VITAL SIGNS: Temperature is 37.2. Vital signs stable. GENERAL: Shows a pleasant elderly female. She is lying in bed, looks pretty comfortable. EXTREMITIES: Examination of the right leg reveals the leg to be well aligned. Dressing is clean, dry and intact. She can dorsiflex and plantarflex her foot appropriately. She is neurologically intact. PLAN: 1. DVT prophylaxis including thigh-high TEDs, SCDs, and aspirin twice a day. 2. PT/OT. Weight bear as tolerated. Right total knee protocol. 3. Pain control, doing pretty well with current pain regimen. 4. Disposition: She is hoping to be discharged to [place] for rehab stay. Social service is working on this.
[2019-07-06] MEDS: SENNA 8.6 MG TAB PO SCH (18:44)
[2019-07-06] MEDS: ARNUITY ELLIPTA INH SCH (21:13)
[2019-07-07] MEDS: KETOROLAC TROMETHAMINE 15 MG/ML VIAL IV SCH ×2 (04:20→10:00)
[2019-07-07] MEDS: ACETAMINOPHEN 500 MG TAB PO SCH ×3 (05:50→21:32)
[2019-07-07] MEDS: TRAMADOL HCL 50 MG TABLET PO PRN ×2 (07:07→17:52)
--- NOTE | 2019-07-07 07:40 | Progress Note ---
DATE: 07/07/2019 SUBJECTIVE: A 69-year-old white female postop day 2 from a right knee replacement. She is doing pretty well. Pain is controlled. Therapy has gone pretty well. No chest pain or shortness of breath. Not feeling dizzy or lightheaded. OBJECTIVE: VITAL SIGNS: Temperature is 37.1. Vital signs stable. GENERAL: Shows a pleasant elderly female. She is sitting up in her bedside chair, looks pretty comfortable this morning. EXTREMITIES: Examination of the right leg reveals the leg to be well aligned. Dressings in place. A little bit of bloody drainage on it. Calf is soft and supple. She is neurologically intact. ASSESSMENT: A 69-year-old white female postop day 2 from right knee replacement, doing reasonably well. Pain is controlled. She is neurologically intact. PLAN: 1. DVT prophylaxis including thigh-high TEDs, SCDs, and aspirin twice a day. 2. PT/OT. Weight bear as tolerated. Right total knee protocol. 3. Pain control, doing well with current pain regimen. 4. Disposition: She is planning to be discharged to [place]. She will stay in the hospital tonight. We will hopefully get her there tomorrow.
[2019-07-07] MEDS: FERROUS GLUCONATE 324 MG TAB PO SCH ×2 (08:15→17:49)
[2019-07-07] MEDS: DOCUSATE SODIUM 100 MG CAP PO SCH ×2 (08:16→21:31)
[2019-07-07] MEDS: CHOLECALCIFEROL 1,000 UNITS TAB PO SCH (08:16)
[2019-07-07] MEDS: CALCIUM 600MG + VIT D 400 IU TAB PO SCH (08:16)
[2019-07-07] MEDS: ASCORBIC ACID 500 MG TAB PO SCH ×2 (08:16→17:49)
[2019-07-07] MEDS: MONTELUKAST SODIUM 10 MG TABLET PO SCH (08:17)
[2019-07-07] MEDS: MULTIVITAMIN TAB PO SCH (08:17)
[2019-07-07] MEDS: ARNUITY ELLIPTA INH SCH (08:18)
[2019-07-07] MEDS: ASPIRIN 81 MG ECTAB PO SCH ×2 (08:18→21:31)
[2019-07-07] MEDS: METOPROLOL TARTRATE 25 MG TAB PO SCH ×2 (09:59→21:31)
[2019-07-07] MEDS: AMLODIPINE BESYLATE 5 MG TAB PO SCH (09:59)
[2019-07-07] MEDS: SENNA 8.6 MG TAB PO SCH (21:31)
[2019-07-08] MEDS: TRAMADOL HCL 50 MG TABLET PO PRN ×2 (02:33→12:13)
[2019-07-08] MEDS: ACETAMINOPHEN 500 MG TAB PO SCH (05:47)
[2019-07-08] MEDS: METOPROLOL TARTRATE 25 MG TAB PO SCH (07:33)
[2019-07-08] MEDS: CHOLECALCIFEROL 1,000 UNITS TAB PO SCH (07:33)
[2019-07-08] MEDS: ASPIRIN 81 MG ECTAB PO SCH (07:33)
[2019-07-08] MEDS: AMLODIPINE BESYLATE 5 MG TAB PO SCH (07:33)
[2019-07-08] MEDS: FERROUS GLUCONATE 324 MG TAB PO SCH (07:33)
[2019-07-08] MEDS: ASCORBIC ACID 500 MG TAB PO SCH (07:33)
[2019-07-08] MEDS: MULTIVITAMIN TAB PO SCH (07:33)
[2019-07-08] MEDS: MONTELUKAST SODIUM 10 MG TABLET PO SCH (07:34)
[2019-07-08] MEDS: DOCUSATE SODIUM 100 MG CAP PO SCH (07:34)
[2019-07-08] MEDS: CALCIUM 600MG + VIT D 400 IU TAB PO SCH (07:34)
[2019-07-08] MEDS: ARNUITY ELLIPTA INH SCH (07:34)
--- NOTE | 2019-07-08 11:18 | Progress Note ---
DATE: 07/08/2019 SUBJECTIVE: A 69-year-old white female now postop day 3 from right knee replacement. She is doing pretty well. Having a moderate amount of pain, but responds to pain pills. Nothing out of the ordinary. Denies any chest pain or shortness of breath. Not feeling dizzy or lightheaded. OBJECTIVE: VITAL SIGNS: Temperature 36.8. Vital signs stable. GENERAL: The patient is a pleasant elderly female. She is sitting up in her bedside chair and looks pretty comfortable. EXTREMITIES: Examination of the right leg reveals incision to be well approximated. Some moderate swelling. No drainage. She can dorsiflex and plantarflex her foot appropriately. Her calf is soft and supple. ASSESSMENT: A 69-year-old white female postop day 3 from right knee replacement, doing pretty well. Some pain, but controlled with pain medicines reasonably well and not out of the ordinary. PLAN: 1. DVT prophylaxis including thigh-high TEDs, SCDs, and aspirin twice a day. 2. PT/OT. Weight bear as tolerated. Right total knee protocol. 3. Pain control, doing pretty well with current pain regimen. 4. Disposition: Plan to discharge to [place] later today after therapy.
--- NOTE | 2019-07-13 12:11 | Discharge Summary ---
DATE OF ADMISSION: 07/05/2019 DATE OF DISCHARGE: 07/08/2019 ADMITTING PHYSICIAN AND SURGEON: Dr. Az Ayala. ADMITTING DIAGNOSIS: Right knee degenerative joint disease. SURGERY PERFORMED: Right total knee arthroplasty. SECONDARY DIAGNOSES: Hypertension, occasional heart palpitations, sleep apnea, obesity, back pain, basal cell skin cancer. CONSULTS: None obtained. HISTORY AND PHYSICAL EXAMINATION: Well documented in the patient's chart. HOSPITAL COURSE: The patient was admitted on 07/05/2019 underwent total knee arthroplasty, tolerated the procedure well. There were no complications. She was transferred to the PACU postoperatively and later to the orthopedic floor for further care. She was given Ancef for antibiotic prophylaxis, GINA stockings, SCDs and aspirin for DVT prophylaxis. Hemoglobin, hematocrit and vital signs were monitored during her hospital stay and remained stable. She did not require any blood transfusions. There were no complications. By postoperative day 3, she was tolerating a regular diet, pain was controlled with oral pain medicine. She was participating in physical therapy. On postop day 3, she was transferred to halfway facility, she is given printed discharge instructions as well as new prescriptions for extra strength Tylenol, aspirin and tramadol. Continue her home medications, continue physical therapy, weightbearing as tolerated, GINA stockings. Follow up approximately 2 weeks postop or sooner if there are any problems or concerns.
== END 2019-07-08 15:30 | DRG 470 ==
LOC: ASU 08:11 → 3E 13:30 → UNDODISIN 07-08 13:08

== ENCOUNTER 2023-06-09 10:48 | Inpatient (IN) ==
--- NOTE | 2023-05-07 11:32 | PAT Medication Instructions ---
Medication Instructions Date of Service May 07, 2023 Home Medications Medication Instructions Recorded albuterol sulfate 90 mcg/actuation 2 puff inhalation Q4H PRN 09/04/20 aerosol inhaler shortness of breath or wheezing #18 grams fluticasone furoate 200 1 inh inhalation QAM #30 ea 09/04/20 mcg/actuation blister powder for inhalation triamcinolone acetonide 0.1 % 1 applic topical BID PRN Rash #80 12/02/21 topical cream grams dicyclomine 10 mg capsule 10 mg PO TID PRN IBS with diarrhea 01/29/22 #90 caps montelukast 10 mg tablet 10 mg PO QAM #90 tabs 04/22/22 metoprolol tartrate 25 mg tablet 25 mg PO BID #180 tabs 10/29/22 amoxicillin 500 mg tablet 2,000 mg PO ONCE #12 tabs 03/13/23 CPAP Supplies #1 ea 03/29/23 amlodipine 2.5 mg tablet 2.5 mg PO QAM #90 tabs 04/22/23 calcium carbonate 600 mg-vitamin D3 12.5 mcg (500 unit) capsule (Calcium 600 with Vitamin D3) 1 cap PO QAM cholecalciferol (vitamin D3) 25 mcg (1,000 unit) tablet 3,000 units PO QAM fluticasone propionate 50 mcg/actuation nasal spray,suspension 2 sprays intranasal QAM PRN multivitamin 1 tab PO QAM albuterol sulfate 90 mcg/actuation aerosol inhaler 2 puff inhalation Q4H PRN fluticasone furoate 200 mcg/actuation blister powder for inhalation 1 inh inhalation QAM triamcinolone acetonide 0.1 % topical cream 1 applic topical BID PRN dicyclomine 10 mg capsule 10 mg PO TID PRN montelukast 10 mg tablet 10 mg PO QAM metoprolol tartrate 25 mg tablet 25 mg PO BID amoxicillin 500 mg tablet 2,000 mg PO ONCE amlodipine 2.5 mg tablet 2.5 mg PO QAM Continue as directed amoxicillin 500 mg tablet 2,000 mg PO ONCE STOP taking 24 hours before surgery triamcinolone acetonide 0.1 % topical cream 1 applic topical BID PRN DO NOT take the morning of surgery calcium carbonate 600 mg-vitamin D3 12.5 mcg (500 unit) capsule (Calcium 600 with Vitamin D3) 1 cap PO QAM cholecalciferol (vitamin D3) 25 mcg (1,000 unit) tablet 3,000 units PO QAM multivitamin 1 tab PO QAM dicyclomine 10 mg capsule 10 mg PO TID PRN Take morning of surgery With a small sip of water, OTHERWISE NOTHING TO EAT OR DRINK AFTER MIDNIGHT: fluticasone propionate 50 mcg/actuation nasal spray,suspension 2 sprays intranasal QAM PRN(if needed) albuterol sulfate 90 mcg/actuation aerosol inhaler 2 puff inhalation Q4H PRN(use if needed; please bring with you to hospital day of surgery if possible) fluticasone furoate 200 mcg/actuation blister powder for inhalation 1 inh inhalation QAM montelukast 10 mg tablet 10 mg PO QAM metoprolol tartrate 25 mg tablet 25 mg PO BID amlodipine 2.5 mg tablet 2.5 mg PO QAM Take evening before surgery albuterol sulfate 90 mcg/actuation aerosol inhaler 2 puff inhalation Q4H PRN(if needed) dicyclomine 10 mg capsule 10 mg PO TID PRN(if needed) metoprolol tartrate 25 mg tablet 25 mg PO BID Other Notes If you have any questions please call us at [phone] or [phone] or [phone] or [phone]
--- NOTE | 2023-05-14 10:01 | Anesthesiology Consultation ---
Date of Service May 14, 2023 Assessment & Plan (1) Encounter for pre-operative examination: - Infectious disease screening: Per assessment on 05/14: No known infectious disease contacts or current infectious disease symptoms. No noted Covid positive test result in past 90 days. - Outpatient joint assessment: Pt currently scheduled for inpatient pathway. If surgeon requests review for outpatient joint pathway, patient is not recommended candidate for outpatient joint program from anesthesia standpoint. - S/P Right TKA (07/05/19): SAB at L3-4 (x1 attempt) + PNB at [facility] - Routine PCP appt scheduled prior to surgery. Awaiting office visit note ([facility], appt 06/02). Chart Review Chart Review: Patient seen in Pre Admission Testing Teaching & Discussion Pre-Anesthesia Teaching/Discussion Notes: Instructed NPO after midnight before surgery,except medications with 15 cc of water. Medication instructions provided according to the PAT guidelines. History Surgery Operation Date: 06/09/23 07:00 Proposed Procedures p Left Total Knee Arthroplasty - Az Ayala MD Height/Weight Height: 4 ft 11 in Weight: 117.2 kg Allergies Allergy/AdvReac Type Severity Reaction Status Date / Time No Known Allergies Allergy Verified 05/07/23 09:25 Medications Home Medications Medication Instructions Recorded Confirmed Last Taken calcium carbonate 600 mg-vitamin 1 cap PO QAM 06/03/19 05/07/23 12/19/21 D3 12.5 mcg (500 unit) capsule (Calcium 600 with Vitamin D3) cholecalciferol (vitamin D3) 25 3,000 units PO QAM 06/03/19 05/07/23 12/19/21 mcg (1,000 unit) tablet fluticasone propionate 50 2 sprays intranasal QAM PRN 06/03/19 05/07/23 Unknown mcg/actuation nasal Congestion spray,suspension multivitamin 1 tab PO QAM 06/03/19 05/07/23 12/19/21 albuterol sulfate 90 mcg/actuation 2 puff inhalation Q4H PRN 09/04/20 05/07/23 Unknown aerosol inhaler shortness of breath or wheezing #18 grams fluticasone furoate 200 1 inh inhalation QAM #30 ea 09/04/20 05/07/23 Unknown mcg/actuation blister powder for inhalation triamcinolone acetonide 0.1 % 1 applic topical BID PRN Rash #80 12/02/21 05/07/23 Unknown topical cream grams dicyclomine 10 mg capsule 10 mg PO TID PRN IBS with diarrhea 01/29/22 05/07/23 Unknown #90 caps montelukast 10 mg tablet 10 mg PO QAM #90 tabs 04/22/22 05/07/23 Unknown metoprolol tartrate 25 mg tablet 25 mg PO BID #180 tabs 10/29/22 05/07/23 Unknown amoxicillin 500 mg tablet 2,000 mg PO ONCE #12 tabs 03/13/23 05/07/23 Unknown CPAP Supplies #1 ea 03/29/23 Unknown amlodipine 2.5 mg tablet 2.5 mg PO QAM #90 tabs 04/22/23 05/07/23 Unknown Past Medical History Medical History Asthma Chronic edema LLE Dyslipidemia Eczema GERD without esophagitis Hx Heart palpitations Hx- no recent issues; previously had bigeminy on prior EKG in setting of illness (N/V/dehydration)- not noted on preop EKG done 06/07/19 History of basal cell cancer s/p excision Hypertension Lumbar spinal stenosis [place] (obstructive sleep apnea) CPAP (compliant) Osteoarthritis Exercise / Class Metabolic Activity III < 4 Walking/Shop/Light housework (one FS (no CP, + SOB)) Past Family History Family History Grandmother (Maternal) Colorectal cancer Grandmother (Paternal) Diabetes Father COPD (chronic obstructive pulmonary disease) Mother Asthma Other No family history of adverse response to anesthesia Past Surgical History Surgical History History of basal cell carcinoma (BCC) excision History of bunionectomy right History of carpal tunnel release of both wrists History of colonoscopy + polypectomy History of esophagogastroduodenoscopy (EGD) History of hammertoe correction right History of tonsillectomy History of tooth extraction History of total knee replacement Right TKA (07/05/19): SAB at L3-4 (x1 attempt) + PNB at [facility] Hx of abdominal hysterectomy Past Anesthesia History No Hx of Anesthesia Complications Mother- slow to wake History of PONV No Hx of PONV and No Hx of Motion Sickness Social History Smoking Status: Never smoker Do You Dip or Chew Tobacco: No Hx Alcohol Use: Yes alcohol intake frequency: holidays/special occasions only Hx Substance Use: No substance use type: does not use Review of Systems Hx palpitations, no recent issues. Patient denies chest pain, shortness of breath, fever, chills, cough, wheezing. Physical Exam Vital Signs VITALS BP 121/84 P 57 TEMP 98.2 SP02 95%RA RESP 16 PHYSICAL Full cervical extension range of motion. Full TMJ range of motion. TMD 3.5 finger breaths Mallampati Score 3 Dentition: + right upper side repair (bridge- per records), missing molars Lungs: clear throughout to auscultation Cardiac: regular rate and rhythm, no murmurs noted Spine: normal Carotid arteries: negative bruit Extremities: LLE non-pitting edema Short neck Lab Results Anesthesia Preop Results Results Anesthesia Widget: WBC 6.69 K/ul (4.8-10.8) 05/14/23 Hgb 14.3 g/dl (12.0-16.0) 05/14/23 Hct 44.7 % (37.0-47.0) 05/14/23 Plt 194 K/uL (130-400) 05/14/23 Na 140 mmol/L (136-145) 05/14/23 K 4.6 mmol/L (3.5-5.1) 05/14/23 Cl 103 mmol/L (98-107) 05/14/23 CO2 34 mmol/L (21-32) H 05/14/23 BUN 12 mg/dl (6-23) 05/14/23 Creat 0.60 mg/dl (0.6-1.2) 05/14/23 Glucose Level 93 mg/dl (70-99(Fasting)) 05/14/23 PT 10.7 Seconds (9.0-12.0) 05/14/23 PTT 26.6 Seconds (21.0-31.0) 05/14/23 INR 1.0 (0.9-1.1) 05/14/23 Blood Type A Positive 05/14/23 Antibody Screen NEGATIVE 05/14/23 Testing Electrocardiogram Date: 02/23/23 SR at 68bpm. "Normal ECG" "No change from 06/07/19 except now has faster rate" per PCP comparison* Chest X-Ray Date: 05/14/23 FINDINGS: The lungs are clear. No pleural effusions. No pneumothorax. The cardiac silhouette is mildly enlarged. No acute fractures identified. Degenerative changes within the thoracic spine. IMPRESSION: Mild cardiomegaly. Otherwise, no acute process within the chest. Stress Test Date: 03/05/23 1. Lexiscan myocardial perfusion study negative for infarct or ischemia. 2. Normal left ventricular size and systolic function. Calculated ejection fraction 76%. No wall motion abnormalities. 3. No Lexiscan induced ECG changes. 4. No anginal symptoms.
[~2023-06-09 10:48] MED LIST changes: -BUPIVACAINE LIPOSOME/PF 266 MG, BUPIVACAINE/EPINEPHRINE 50 ML, SODIUM CHLORIDE 0.9% 30 ... INFIL SCH; +BUPIVACAINE LIPOSOME/PF 266 MG, BUPIVACAINE/EPINEPHRINE 50 ML, SODIUM CHLORIDE 0.9% PF ... INFIL SCH; -CEFAZOLIN 2000MG 2,000 MG/15 ML SYR IV SCH; +CeleBREX 200 MG CAP PO SCH; -GABAPENTIN 300 MG CAP PO SCH; -LACTATED RINGER'S 1,000 ML IV SCH; +ceFAZolin 2000MG 2,000 MG/15 ML SYR IV SCH; +dexAMETHasone**PF** 10 MG/ML VIAL IV SCH
--- NOTE | 2023-06-09 10:52 | History & Physical Bridge Note ---
Date of Service June 09, 2023 History & Physical Bridge Note I have examined the patient, reviewed the History & Physical and in the interval since the performance of the History & Physical I have noted the following changes of clinical significance: no changes noted
[2023-06-09] MEDS ORDERED: MIDAZOLAM HCL 1 MG/ML 2ML VIAL ONE (11:18)
[2023-06-09] MEDS ORDERED: fentaNYL citrate PF 100 MCG/2 ML VIAL ONE (11:18)
[2023-06-09] MEDS ORDERED: SODIUM CHLORIDE 0.9% PF 50 ML VIAL ONE ×2 (11:26→11:27)
[2023-06-09] MEDS ORDERED: BUPIVACAINE LIPOSOME 1.3% 266 MG/20 ML VIAL ONE (11:26)
[2023-06-09] MEDS ORDERED: BUPIVACAINE/EPINEPHRINE 0.25% 1:200,000 30 ML VIAL ONE (11:26)
[2023-06-09] MEDS ORDERED: ATROPINE SULFATE 0.1 MG/ML 10ML SYR IV PRN (11:47)
[2023-06-09] MEDS ORDERED: fentaNYL citrate PF 100 MCG/2 ML VIAL IV PRN (11:47)
[2023-06-09] MEDS ORDERED: ePHEDrine sulfate 50 MG/ML AMP IV PRN (11:47)
[2023-06-09] MEDS ORDERED: ONDANSETRON INJ 2 MG/ML 2 ML VIAL IV PRN ×2 (11:47→16:53)
[2023-06-09] MEDS ORDERED: PROPOFOL IV EMULSION 10 MG/ML 20 ML VIAL IV ONE (13:02)
[2023-06-09] MEDS ORDERED: ePHEDrine sulfate 50 MG/ML AMP ONE (13:12)
--- NOTE | 2023-06-09 14:53 | Operative Report ---
PG Post Operative Report Pre & Post Diagnosis Operation Date: 06/09/23 12:30 Pre-Op Diagnosis: Left knee degenerative joint disease Post-Op Diagnosis: Left knee degenerative joint disease I identified the patient and participated in the time-out.: Yes Procedure Operation Date: 06/09/23 12:30 Actual Procedures p Left Total Knee Arthroplasty(Left) - Az Ayala MD Surgeon Az Ayala MD Steel Worker Trevor Chappell PA-C Estimated Blood Loss 50 Findings Consistent with Post-Op Diagnosis Operative findings were advanced left knee tricompartment DJD. She had extensive grade 4 fiea-un-ocsm disease in all 3 compartments with osteophytes in all 3 compartments. Large knee joint effusion. Moderate to large soft tissue envelope. Specimens Left knee sent for pathology Anesthesia Type Spinal MAC Complications none Disposition Accompanied Patient To Recovery: No Indications Patient is 73-year-old female said a long history of knee pain and problems with arthritis in both knees. She underwent a right knee replacement about 4 years ago. She did pretty well and was actually scheduled for left knee replacement several years ago but then COVID hit she is put it off. She become more more debilitated by her knee pain. X-rays show advanced knee arthritis. She elected proceed with surgical treatment. Description of Procedure Operative implants consist of: 1 Biomet Vanguard size 62.5 left posterior stabilized femoral component. 2. Biomet size 71 tibial tray. 3. 16 mm posterior stabilized polyethylene plus insert. 4. 28 x 8 all poly patella. The patient was taken to the operating, identified, placed on the operating table supine position architectures were properly padded. IV antibiotics tried by anesthesia team. A spinal anesthetic and abductor canal block had provided in the holding area. Taylor catheter was placed in sterile fashion. Left thigh turn was then placed in left lower extremities then prepped and draped in usual sterile fashion. The left leg was elevated and exsanguinated with use of an Esmarch in terms playset 300 mmHg. An anterior approach the left knee was then performed to longitudinal incision centered over the patella. Sharp dissection was carried through subcutaneous tissue down the extensor mechanism. Medial parapatellar arthrotomy incision was made. Some subperiosteal dissection was carried out medially. The fat pad was dissected from Neath patella tendon. Lateral patellofemoral ligament was released. Patella subluxated laterally and the knee was flexed. The osteophytes taken on distal femur. The ACL PCL released from the distal femur. The tibia subluxated anteriorly. The external tibial alignment jig was then placed in the interface the tibia and adjusted 14 mm medially. Proximal tibial cut was made essentially flush with the most deficient aspect the posterior medial tibial plateau. Some large osteophytes were taken off medial and posterior medially. The tibia was sized to a size 71. Attention drawn the femur. The distal femur was entered with a sharp drill. Intramedullary canal was suction. A left 5 degree valgus cutting guide was placed. This femoral cutting block was pinned in place. This femoral cut was made to take an additional 3 mm of bone off distal femur. The femur was then sized to a size 62.5. The AP cutting block was pinned parallel to the epicondylar axis which was 5 degrees of external rotation. The anterior cut, anterior chamfer, posterior cut, posterior chamfer cuts were made. The box cutting guide was placed in just slight lateral and the box cut was made. The knee was flexed. The remnants of the medial lateral menisci were excised. The osteophytes taken off the posterior aspect the femur. A trial femoral component was placed. The tibial tray was pinned in maximum external rotation and the drill and stem punch used to create defect in proximal tibia for the tibial tray. The knee was then trialed and the 16mm PS plus insert fit most appropriately. She did have a little bit of MCL laxity due to the large osteophytes removed and therefore use a PS plus implant. Attention drawn the patella. Patella was cleaned of all soft tissue. Patella thickness measured 21 mm in thickness was cut down to 12. Was sized to a size 28 patella. The locals were drilled for the 28 patella. The lateral osteophytes removed. Patella button was placed. Knee was taken through range of motion and the patella tracked nicely with no thumbs test. Attention drawn to placing permanent components. All trial components were removed. Bone plug was placed into this femur limit blood loss. Double batch Palacos G cement was mixed. BiomShepHertz size 62.5 left posterior stabilized femoral component, a size 71 tibial tray, a 16 mm post erior stabilized polyethylene plus insert, and a 28 x 8 all poly patella then cemented in place. Knee was brought out into full extension till cement hardened. Final cement check was then performed. The pericapsular tissues were injected with total of 100 cc of combination of 20 cc of Exparel, 30 cc normal saline, 50 cc of quarter percent Marcaine with epinephrine. Patient did receive 1 g tranexamic acid. The tourniquet was then let down for final tourniquet time of 60 minutes. Hemostasis assured with electrocautery. Extensor mechanism then closed with combination 1 PDS suture #1 Vicryl suture in a [id number] fashion. The extensor mechanism checked found to be intact the subcutaneous tissue then closed with 2 Dexon suture in buried interrupted fashion skin was closed skin ramon. Leg was then cleaned and dried and sterile dressing was Xeroform, 4 fours, sterile cast padding, Nolan bandage were applied. Patient then transferred to the recovery room in stable condition. The patient tolerated the procedure well and there were no complications. Trevor Chappell, my physician security assistant, was present for the entire procedure. His assistance was essential and required for appropriate patient positioning, prepping and draping, surgical exposure, performing the technical details of the operation, placement the implants, closure of the wound, and placement of the sterile bandage. I attest to the content of the Intraoperative Record and any orders documented therein. Any exceptions are noted below.
--- NOTE | 2023-06-09 16:19 | Anesthesiology Progress Note ---
Date of Service June 09, 2023 Anesthesia Post Procedure Vital Signs Vital Signs: Temp Pulse Pulse Resp BP Pulse Ox O2 Del Method 06/09/23 16:15 80 20 129/82 95 Nasal Cannula 06/09/23 16:05 76 18 126/79 95 Nasal Cannula 06/09/23 15:55 77 16 128/79 96 Nasal Cannula 06/09/23 15:45 97.7 F 78 16 128/80 91 Room Air 06/09/23 15:35 77 16 130/78 93 Room Air 06/09/23 15:25 76 14 133/80 92 Room Air 06/09/23 15:15 97.7 F 75 17 129/74 93 Room Air 06/09/23 15:05 75 16 121/76 92 Room Air 06/09/23 14:55 75 18 126/71 95 Oxymask 06/09/23 14:45 97.2 F L 77 16 121/74 95 Oxymask 06/09/23 11:27 98.4 F 69 20 109/71 95 Room Air O2 Flow Rate 06/09/23 16:15 2 06/09/23 16:05 2 06/09/23 15:55 2 06/09/23 15:45 06/09/23 15:35 06/09/23 15:25 06/09/23 15:15 06/09/23 15:05 06/09/23 14:55 4 06/09/23 14:45 6 06/09/23 11:27 Transfer of Care Handoff Completed per policy Notes Mental Status: alert / awake / arousable and participated in evaluation Patient Amnestic to Procedure: Yes Nausea / Vomiting: adequately controlled Pain: adequately controlled Airway Patency, RR, SpO2: stable & adequate BP & HR: stable & adequate Hydration State: stable & adequate Neuraxial Anesthesia: was administered and sensory block is resolving Anesthetic Complications: no major complications apparent and Pt Satisfied with anesthetic care
[2023-06-09] MEDS ORDERED: FLUTICASONE PROPIONATE NA SPR 16 GM BTL NAE PRN (16:53)
[2023-06-09] MEDS ORDERED: NALOXONE HCL 0.4 MG/1 ML VIAL/CARP IV PRN (16:53)
[2023-06-09] MEDS ORDERED: TRIAMCINOLONE ACET 0.1% CR 15 GM TUBE TOP PRN (16:53)
[2023-06-09] MEDS ORDERED: METOCLOPRAMIDE HCL INJ 5 MG/ML 2 ML VIAL IV PRN (16:53)
[2023-06-09] MEDS ORDERED: FLUTICASONE FUROATE 200MCG 14 PUFFS/INHALER INH PRN (16:53)
[2023-06-09] MEDS ORDERED: ALUMINUM/MAGNESIUM SUSP 30 ML UDC PO PRN (16:53)
[2023-06-09] MEDS ORDERED: NON-FORMULARY MEDICATION (Amoxicillin 500 mg tablet) PO SCH (16:53)
[2023-06-09] MEDS ORDERED: DICYCLOMINE HCL 10 MG CAP PO PRN (16:53)
[2023-06-09] MEDS ORDERED: bisacodyL 10 MG SUPP PR PRN (16:53)
[2023-06-09] MEDS ORDERED: HYDROmorphone INJ 0.5 MG/0.5 ML SYR IV PRN (16:53)
[2023-06-09] MEDS ORDERED: ALBUTEROL HFA 8 GM INHALER INH PRN (16:53)
[2023-06-09] MEDS: SODIUM CHLORIDE 0.9% 1,000 ML IV SCH (16:56)
--- NOTE | 2023-06-09 17:21 | XRay Report ---
XR knee LT 1 or 2V routine CLINICAL HISTORY: Postoperative evaluation. COMPARISON: Left knee radiographs May 14, 2023. FINDINGS: Alignment of the total left knee arthroplasty is anatomic. There is no periprosthetic frac ture. No unexpected radiopaque foreign bodies. There are skin ramon. IMPRESSION: Expected findings following total left knee arthroplasty. ACT 112: Negative or not required by law. Electronically signed by: Jhonathan Eng M.D. 06/09/2023 5:20 PM
[2023-06-09] MEDS: KETOROLAC TROMETHAMINE 15 MG/ML VIAL IV SCH (17:45)
[2023-06-09] MEDS: ASCORBIC ACID 500 MG TAB PO SCH (18:13)
[2023-06-09] MEDS: ceFAZolin 2000MG 2,000 MG/15 ML SYR IV SCH (19:54)
[2023-06-09] MEDS: ASPIRIN 81 MG ECTAB PO SCH (19:57)
[2023-06-09] MEDS: METOPROLOL TARTRATE 25 MG TAB PO SCH (19:58)
[2023-06-09] MEDS: DOCUSATE SODIUM 100 MG CAP PO SCH (19:58)
[2023-06-09] MEDS: SENNA 8.6 MG TAB PO SCH (19:59)
[2023-06-09] MEDS ORDERED: TRANEXAMIC ACID / 0.7% NACL 1,000 MG/100 ML BAG IV SCH (20:45)
[2023-06-09] MEDS: ACETAMINOPHEN 500 MG TAB PO SCH (21:02)
[2023-06-10] MEDS: KETOROLAC TROMETHAMINE 15 MG/ML VIAL IV SCH ×5 (00:49→23:57)
[2023-06-10] MEDS: SODIUM CHLORIDE 0.9% 1,000 ML IV SCH (03:21)
[2023-06-10] MEDS: ceFAZolin 2000MG 2,000 MG/15 ML SYR IV SCH (05:05)
[2023-06-10] MEDS: ACETAMINOPHEN 500 MG TAB PO SCH ×3 (05:05→20:10)
[2023-06-10] MEDS ORDERED: dexAMETHasone 10 MG in SYRINGE 0 ML IV SCH (08:00)
[2023-06-10] MEDS: CHOLECALCIFEROL 1,000 UNITS 25 MCG TAB PO SCH (08:11)
[2023-06-10] MEDS: DOCUSATE SODIUM 100 MG CAP PO SCH ×2 (08:11→20:09)
[2023-06-10] MEDS: METOPROLOL TARTRATE 25 MG TAB PO SCH ×2 (08:11→20:09)
[2023-06-10] MEDS: MONTELUKAST SODIUM 10 MG TABLET PO SCH (08:11)
[2023-06-10] MEDS: ASPIRIN 81 MG ECTAB PO SCH ×2 (08:11→20:09)
[2023-06-10] MEDS: ASCORBIC ACID 500 MG TAB PO SCH ×2 (08:11→17:46)
[2023-06-10] MEDS: MULTIVITAMIN TAB PO SCH (08:11)
[2023-06-10] MEDS: amLODIPine BESYLATE 5 MG TAB PO SCH (08:11)
[2023-06-10] MEDS: CALCIUM 600MG + VIT D 400 IU TAB PO SCH (08:12)
[2023-06-10 08:16] LABS: Hematocrit (blood only) 35.7 % (37.0-47.0); Hemoglobin 11.8 g/dl (12.0-16.0); Mean Corpuscular Hemoglobin 28.9 pg (25.0-34.0); Mean Corpuscular Hgb Conc 33.1 g/dL (32.0-36.0); Mean Corpuscular Volume 87.5 fL (80.0-100.0); Mean Platelet Volume 11.5 fL (9.4-12.4); Platelet Count 166 K/uL (130-400); RDW Coefficient of Variation 14.2 % (11.5-14.5); RDW Standard Deviation 45.3 fL (36.4-46.3); Red Blood Count 4.08 M/uL (4.20-5.40); White Blood Count 13.43 K/ul (4.8-10.8)
[2023-06-10] MEDS: oxyCODONE HCL IR 5 MG TAB (IMMEDIATE RELEASE) PO PRN (08:16)
--- NOTE | 2023-06-10 08:20 | Surgery Progress Note ---
Date of Service June 10, 2023 Assessment & Plan (1) Status post left knee replacement: Plan: 73-year-old female postop day 1 from left knee replacement. She is doing pretty well. Moderate amount of pain but not anything out of the ordinary. She is neurologically intact. Plan: 1. DVT prophylaxis including thigh-high teds, SCDs, aspirin twice a day. 2. PT OT. Weight-bear as tolerated left total knee protocol. 3. Pain control doing okay with current pain regimen. 4. Disposition plan to discharge to [facility] when accepted and approved. [facility] [email or web address] working on this. May require a certain length of hospital stay. Admission and Anticipated Discharge Date Admission Date: June 09, 2023 Subjective 73-year-old female postop day 1 from a left knee replacement.-Bit more pain this morning. No chest pain or shortness of breath. Not feeling dizzy or lightheaded. She is hoping to go to [facility] for brief rehab stay. Physical Exam Physical Exam: Physical examination was a pleasant elderly female. Sitting up in bed looks pretty comfortable eating breakfast. Examination of the left leg reveals the dressing be clean dry and intact. Leg is well aligned. Can dorsiflex and plantarflex her foot appropriately. She is neurologically intact. Respiratory: normal respiratory effort, lungs clear to auscultation Cardiovascular: RRR, no murmur, no edema Gastrointestinal (Abdomen): normal bowel sounds, soft, nontender, no hepatosplenomegaly Results & Data Vital Signs (Past 12 Hours) Vital Signs Temp Pulse Resp BP Pulse Ox O2 Del Method 06/10/23 07:40 36.7 C 77 18 115/68 96 Room Air 06/10/23 07:35 Room Air 06/10/23 03:41 36.9 C 73 18 115/68 96 Room Air 06/09/23 22:58 36.7 C 78 18 122/82 96 Room Air Laboratory Results Hemoglobin is 11.8. Hematocrit 35.7. Electrolytes are pending. PG Care Time/CCT Total # of Minutes Spent Total Time Spent with Patient: Total time spent is greater than 50% in coordination of care (as documented) at patient's floor/unit and/or counseling patient: Coding Level of Care Code 33515 Post Operative Follow-Up Diagnoses Status post left knee replacement Z96.652
[2023-06-10 08:34] LABS: Calcium 8.3 mg/dl (8.6-10.3); Creatinine Clr Calc Pharmacy 97.4 ml/min; Est GFR (African American) 105.4 ml/min; Est GFR (Non-African American) 90.9 ml/min
[2023-06-10] MEDS ORDERED: NON-FORMULARY MEDICATION (Multivitamin Tablet) PO SCH (09:00)
[2023-06-10] MEDS: MAGNESIUM HYDROXIDE SUSP 30 ML UDC PO PRN (14:13)
[2023-06-10] MEDS: SENNA 8.6 MG TAB PO SCH (20:10)
[2023-06-11] MEDS: ACETAMINOPHEN 500 MG TAB PO SCH ×3 (04:47→22:10)
[2023-06-11] MEDS: KETOROLAC TROMETHAMINE 15 MG/ML VIAL IV SCH ×2 (04:47→11:33)
[2023-06-11] MEDS ORDERED: Nursing to Pharmacy Communication SCH (07:30)
--- NOTE | 2023-06-11 07:44 | Surgery Progress Note ---
Date of Service June 11, 2023 Assessment & Plan (1) Status post left knee replacement: Plan: 73-year-old female postop day 2 from left knee replacement doing reasonably well. Pain is controlled. She is neurologically intact. She is hoping to go to [facility]. Unfortunately she has to have a 3-day hospital stay. They have a bed for her on Thursday. We will plan on managing her here in the meantime. She DVT prophylaxis including thigh-high teds, SCDs, aspirin twice a day. She can fully weight-bear on this left leg. Continue therapy. Admission and Anticipated Discharge Date Admission Date: June 10, 2023 Subjective 73-year-old female postop day 2 from a left knee replacement. She is doing pretty well. Pain is controlled. No chest pain or shortness of breath. She is hoping to go to [facility]. Awaiting for placement. Physical Exam Physical Exam: Physical examination was a pleasant elderly female patient lying bed looks pretty comfortable this morning. She is awake alert and oriented. Examination left leg reveals the leg to be well aligned. Her dressings clean dry and intact. She can dorsiflex and plantarflex her foot appropriately. She is neurologically intact. Results & Data Vital Signs (Past 12 Hours) Vital Signs Temp Pulse Resp BP Pulse Ox O2 Del Method 06/11/23 07:30 36.6 C 49 L 18 134/82 96 Room Air 06/10/23 20:15 Room Air, CPAP 06/10/23 20:02 36.7 C 72 18 118/73 96 Room Air PG Care Time/CCT Total # of Minutes Spent Total Time Spent with Patient: Total time spent is greater than 50% in coordination of care (as documented) at patient's floor/unit and/or counseling patient: Coding Level of Care Code None Diagnoses Status post left knee replacement Z96.652
[2023-06-11] MEDS: METOPROLOL TARTRATE 25 MG TAB PO SCH ×2 (08:57→20:38)
[2023-06-11] MEDS: ASCORBIC ACID 500 MG TAB PO SCH ×2 (08:57→16:17)
[2023-06-11] MEDS: CHOLECALCIFEROL 1,000 UNITS 25 MCG TAB PO SCH (08:57)
[2023-06-11] MEDS: MULTIVITAMIN TAB PO SCH (08:57)
[2023-06-11] MEDS: amLODIPine BESYLATE 5 MG TAB PO SCH (08:57)
[2023-06-11] MEDS: CALCIUM 600MG + VIT D 400 IU TAB PO SCH (08:57)
[2023-06-11] MEDS: MONTELUKAST SODIUM 10 MG TABLET PO SCH (08:57)
[2023-06-11] MEDS: ASPIRIN 81 MG ECTAB PO SCH ×2 (08:58→20:37)
[2023-06-11] MEDS: DOCUSATE SODIUM 100 MG CAP PO SCH ×2 (08:58→20:37)
[2023-06-11] MEDS: MAGNESIUM HYDROXIDE SUSP 30 ML UDC PO PRN (09:00)
[2023-06-11] MEDS: oxyCODONE HCL IR 5 MG TAB (IMMEDIATE RELEASE) PO PRN (09:03)
[2023-06-11] MEDS: SENNA 8.6 MG TAB PO SCH (20:37)
[2023-06-12] MEDS: ACETAMINOPHEN 500 MG TAB PO SCH ×3 (05:08→20:43)
[2023-06-12] MEDS: MULTIVITAMIN TAB PO SCH (08:40)
[2023-06-12] MEDS: amLODIPine BESYLATE 5 MG TAB PO SCH (08:41)
[2023-06-12] MEDS: ASPIRIN 81 MG ECTAB PO SCH ×2 (08:41→20:44)
[2023-06-12] MEDS: ASCORBIC ACID 500 MG TAB PO SCH ×2 (08:41→16:47)
[2023-06-12] MEDS: CALCIUM 600MG + VIT D 400 IU TAB PO SCH (08:41)
[2023-06-12] MEDS: METOPROLOL TARTRATE 25 MG TAB PO SCH ×2 (08:41→20:44)
[2023-06-12] MEDS: MONTELUKAST SODIUM 10 MG TABLET PO SCH (08:42)
[2023-06-12] MEDS: CHOLECALCIFEROL 1,000 UNITS 25 MCG TAB PO SCH (08:42)
[2023-06-12] MEDS: DOCUSATE SODIUM 100 MG CAP PO SCH ×2 (08:44→20:45)
--- NOTE | 2023-06-12 11:08 | Surgery Progress Note ---
Date of Service June 12, 2023 Assessment & Plan (1) Status post left knee replacement: Plan: 73-year-old female well postop day 3 from a left knee replacement doing pretty well. Pain is controlled. She is neurologically intact to just wait for placement. Plan: 1. DVT prophylaxis including thigh-high teds, SCDs, baby aspirin twice a day. 2. PT OT. Weight-bear as tolerated left total knee protocol. 3. Pain control doing okay with current pain regimen. 4. Disposition she is planning to discharge to a [facility] for a brief rehab/fci facility stay. She will likely then go stay with her mother and go to outpatient therapy. Admission and Anticipated Discharge Date Admission Date: June 10, 2023 Subjective 73-year-old female postop day 3 from a left knee replacement. She is doing pretty well. Therapy is going well. No chest pain or shortness of breath. Had more pain last night but doing better this morning. Just waiting to go to [place]. Physical Exam Physical Exam: Physical examination was a pleasant elderly female. Sitting up in her bedside chair and looks quite comfortable. Examination left leg reveals a leg to be well aligned. Incisions well approximated. Little bit of bloody drainage at [place] perior aspect of incision site. She can dorsiflex and plantarflex her foot appropriately. She is neurologically intact. Results & Data Vital Signs (Past 12 Hours) Vital Signs Temp Pulse Resp BP Pulse Ox O2 Del Method 06/12/23 08:25 36.5 C 16 125/83 98 Room Air 06/12/23 06:31 36.6 C 48 L 18 95/57 L 96 Room Air PG Care Time/CCT Total # of Minutes Spent Total Time Spent with Patient: Total time spent is greater than 50% in coordination of care (as documented) at patient's floor/unit and/or counseling patient: Coding Level of Care Code 69694 Post Operative Follow-Up Diagnoses Status post left knee replacement Z96.652
[2023-06-12] MEDS: SENNA 8.6 MG TAB PO SCH (20:45)
[2023-06-13] MEDS: ACETAMINOPHEN 500 MG TAB PO SCH (05:51)
--- NOTE | 2023-06-13 07:26 | Surgery Progress Note ---
Date of Service June 13, 2023 Assessment & Plan (1) Status post left knee replacement: Plan: 73-year-old female postop day 4 from a knee replacement doing pretty well. She just been waiting for placement. She is hoping to go go to [facility] [place] today. Plan: 1. DVT prophylaxis including thigh-high teds SCDs and aspirin twice a day. 2. PT OT weight-bear as tolerated left total knee protocol. 3. Pain control doing okay with current pain regimen. 4. Disposition plan to discharge to [facility] today Admission and Anticipated Discharge Date Admission Date: June 10, 2023 Subjective 73-year-old female postop day 4 from a knee replacement. That she is doing pretty well. She has been just waiting for placement. That she is hoping to go to [facility] today. No new complaints. Pain is controlled. No chest pain or shortness of breath. Physical Exam Physical Exam: Physical examination reveals a pleasant elderly female. I did wake her this morning. She is lying comfortably in bed. Examination left leg reveals a dressing clean dry and intact. There is been no further drainage. She can dorsiflex and plantarflex her foot appropriately. She is neurologically intact. Results & Data Vital Signs (Past 12 Hours) Vital Signs Temp Pulse Resp BP Pulse Ox O2 Del Method 06/13/23 07:17 36.6 C 53 L 16 105/64 95 Room Air 06/12/23 20:42 36.7 C 62 18 133/77 96 Room Air PG Care Time/CCT Total # of Minutes Spent Total Time Spent with Patient: Total time spent is greater than 50% in coordination of care (as documented) at patient's floor/unit and/or counseling patient: Coding Level of Care Code 07074 Post Operative Follow-Up Diagnoses Status post left knee replacement Z96.652
[2023-06-13] MEDS: ASCORBIC ACID 500 MG TAB PO SCH (07:47)
[2023-06-13] MEDS: CALCIUM 600MG + VIT D 400 IU TAB PO SCH (07:48)
[2023-06-13] MEDS: MONTELUKAST SODIUM 10 MG TABLET PO SCH (07:48)
[2023-06-13] MEDS: MULTIVITAMIN TAB PO SCH (07:48)
[2023-06-13] MEDS: CHOLECALCIFEROL 1,000 UNITS 25 MCG TAB PO SCH (07:48)
[2023-06-13] MEDS: amLODIPine BESYLATE 5 MG TAB PO SCH (07:48)
[2023-06-13] MEDS: ASPIRIN 81 MG ECTAB PO SCH (07:48)
[2023-06-13] MEDS: METOPROLOL TARTRATE 25 MG TAB PO SCH (07:49)
[2023-06-13] MEDS: DOCUSATE SODIUM 100 MG CAP PO SCH (07:49)
== END 2023-06-13 11:15 | DRG 470 ==
LOC: ASU 10:48 → 3W 10:48